=== PATIENT | male | born 1940 | race Caucasian/White ===

== ENCOUNTER 2016-12-25 12:48 | Emergency (ER) | payer SELFPAY ==
[~2016-12-25] VITALS: Wt 83.4 kg
--- NOTE | 2016-12-25 13:07 | RADRPT ---
PROCEDURE: Noncontrast CT Head. CLINICAL INDICATION: Code stroke. Acute neurologic deficit. TECHNIQUE: Noncontrast CT of the head was obtained. The administered radiation dose was CTDI vol = 45.01 mGy, DLP = 630.02 mGy-cm. One or more of the following dose reduction techniques were used: Au tomated exposure control, Adjustment of the mA and/or kV according to patient size, or Use of iterat avery reconstruction technique. COMPARISON: There are no similar studies submitted for comparison. FINDINGS: There is moderate generalized cerebral volume loss. There is minimal periventricular hypoattenuation suggesting chronic microvascular ischemic changes. There are mild vascular calcifications within the intracranial carotid arteries. There is probable subtle focal loss of asencio-white differentiation within the left parietal cortex (i mage 18 series 2) suggesting acute / recent infarction. There is a partially empty sella turcica. There is no acute intracranial hemorrhage or extra-axial fluid collection. There is no mass effect. No midline shift is identified. The orbits are within normal limits. There is mild bilateral ethmoid sinus mucosal thickening. There is mild to moderate left maxillary sinus mucosal thickening. No destructive osseous lesion is identified. There is a right parietal scalp subcutaneous density wh ich is indeterminate (image 7 series 601). IMPRESSION: 1. Subtle probable focal loss of asencio-white differentiation within the left parietal cortex suggesti ng acute / recent infarction. Consider CTA of the head/neck or noncontrast MRI of the brain as clin ically warranted. 2. No acute intracranial hemorrhage or extra-axial fluid collection. 3. Moderate generalized cerebral volume loss. 4. Minimal chronic microvascular ischemic changes. 5. Right parietal scalp subcutaneous density which is indeterminate. Correlate with physical exami nation. Further findings as detailed above. These findings were discussed with Dr. Kirk Kaur at 01:05 p.m. on December 25, 2016. RPTAT: HVF .Jourdan Frey MD, Date Time Electronically viewed and signed by .Jourdan Frey MD, MD on 12/25/2016 13:07 .F/
[2016-12-25 13:08] LABS: BASOPHILS % 0.5 % (0.0-2.0); EOSINOPHILS # 0.2 10^3/ul (0.0-0.5); EOSINOPHILS % 2.5 % (0.0-7.0); HEMATOCRIT 37.1 % (42.0-52.0); HEMOGLOBIN 12.2 g/dl (14.0-18.0); LYMPHOCYTES # 1.2 10^3/ul (0.8-2.9); LYMPHOCYTES % 14.6 % (15.0-51.0); MEAN CORPUSCULAR HEMOGLOBIN 27.9 pg (29.0-33.0); MEAN CORPUSCULAR HGB CONC 32.9 g/dl (32.0-37.0); MEAN CORPUSCULAR VOLUME 84.9 fl (82.0-101.0); MEAN PLATELET VOLUME 10.4 fl (7.4-10.4); MONOCYTE # 0.6 10^3/ul (0.3-0.9); MONOCYTES % 6.8 % (0.0-11.0); NEUTROPHIL # 6.3 10^3/ul (1.6-7.5); NEUTROPHILS % 75.2 % (39.0-77.0); PLATELET COUNT 250 10^3/UL (140-415); RED BLOOD COUNT 4.37 10^6/ul (4.70-6.10); RED CELL DISTRIBUTION WIDTH 14.7 % (11.5-14.5); WHITE BLOOD COUNT 8.3 10^3/ul (4.8-10.8)
[2016-12-25 13:09] LABS: ADD SCAN DIFF NO
--- NOTE | 2016-12-25 13:16 | ERA ---
ER Documentation Chief Complaint Date/Time DATE: 12/25/16 TIME: 13:10 Chief Complaint HPI 76-year-old male unknown past medical history unknown medications who presents via EMS for possible stroke. EMS reports that the patient was found by his with unknown onset of symptoms, unknown duration of symptoms. She noted that the patient was confused and while he normally speaks Icelandic he was speaking gibberish. EMS reported a possible right-sided facial droop and right upper extremity weakness. They state of the right upper extremity weakness with flaccid and now improving. Remainder of HPI is dramatically limited. Despite the use of a Icelandic web developer on the phone the patient was uninterpretable. ROS Critical patient, difficulty with verbalization. Allergies Allergies: Coded Allergies: No Known Allergy (Unverified , 12/25/16) Physical Exam Vitals Vital Signs Date Time Temp Pulse Resp B/P Pulse Ox O2 Delivery O2 Flow Rate FiO2 12/25/16 14:00 73 16 157/76 97 12/25/16 14:00 73 16 157/76 97 Nasal Cannula 2.0 12/25/16 13:47 82 20 167/82 98 12/25/16 13:47 82 20 167/82 98 Nasal Cannula 2.0 12/25/16 12:50 97.6 90 16 167/82 98 Physical Exam General: Well developed, well nourished, no acute distress, appears to be speaking but incomprehensible [place]ic Head: Normocephalic, atraumatic. Eyes: Pupils equally reactive, EOM intact ENT: Moist mucous membranes Neck: Supple, no lymphadenopathy Respiratory: Lungs clear bilaterally, no distress Cardiovascular: RRR, no murmurs, rubs, or gallops Abdominal: Soft, non-tender, non-distended, no peritoneal signs : Deferred MSK: No edema, no unilateral swelling, difficulty following exam but appears to be moving all 4 extremities with possible weakness to the right lower extremity though patient is poorly cooperative likely secondary to poor comprehension and language barrier Neurologic: Patient appears to be alert, he is able to follow very simple commands and seems to be moving all 4 extremities though he is having some difficulty moving the right lower extremity. There is a potential for facial droop though unknown baseline of this patient. There is very limited cooperation given language barrier, the Icelandic web developer states that the patient is speaking gibberish. Skin: No rash Psych: Normal mood Result Diagram: 12/25/16 1255 12/25/16 1255 Results 24 hrs Laboratory Tests Test 12/25/16 12:55 White Blood Count 8.310^3/ul Red Blood Count 4.3710^6/ul Hemoglobin 12.2g/dl Hematocrit 37.1% Mean Corpuscular Volume 84.9fl Mean Corpuscular Hemoglobin 27.9pg Mean Corpuscular Hemoglobin Concent 32.9g/dl Red Cell Distribution Width 14.7% Platelet Count 94338^3/UL Mean Platelet Volume 10.4fl Neutrophils % 75.2% Lymphocytes % 14.6% Monocytes % 6.8% Eosinophils % 2.5% Basophils % 0.5% Nucleated Red Blood Cells % 0.0/100WBC Neutrophils # 6.310^3/ul Lymphocytes # 1.210^3/ul Monocytes # 0.610^3/ul Eosinophils # 0.210^3/ul Basophils # 0.010^3/ul Nucleated Red Blood Cells # 0.010^3/ul Prothrombin Time 13.1Sec Prothrombin Time Ratio 1.0 INR International Normalized Ratio 0.99 Activated Partial Thromboplast Time 37.5Sec Sodium Level 141mmol/L Potassium Level 4.2mmol/L Chloride Level 100mmol/L Carbon Dioxide Level 23mmol/L Anion Gap 22 Blood Urea Nitrogen 19mg/dl Creatinine 0.69mg/dl Glucose Level 107mg/dl Hemoglobin A1c 6.0% Calcium Level 9.7mg/dl Total Bilirubin 0.3mg/dl Direct Bilirubin 0.00mg/dl Indirect Bilirubin 0.3mg/dl Aspartate Amino Transf (AST/SGOT) 20IU/L Alanine Aminotransferase (ALT/SGPT) 29IU/L Alkaline Phosphatase 72IU/L Troponin I < 0.012ng/ml Total Protein 7.6g/dl Albumin 4.5g/dl Globulin 3.10g/dl Albumin/Globulin Ratio 1.45 Ethyl Alcohol Level mg/dl Current Medications Medications (Trade) Dose Ordered Sig/Eamon Route PRN Reason Start Time Stop Time Status Last Admin Dose Admin Alteplase, Recombinant (Activase) 7.5 mg BOLUS OVER 1 MIN ONCE IV* 12/25/16 14:00 12/25/16 14:01 DC Alteplase, Recombinant 67.6 mg 67.6 mg ISCHEMIC STROKE ONCE IV* 12/25/16 14:00 12/25/16 14:01 DC Sodium Chloride (NS) 50 ml @ 0 mls/hr FLUSH AFTER TPA ONCE IV 12/25/16 14:00 12/25/16 14:01 DC Procedures/MDM EKG, MONITORS, & DIAGNOSTIC IMAGING: EKG: I reviewed and interpreted a 12-lead EKG. Rhythm: Normal sinus rhythm Ectopy: None Arrhythmia: None Intervals: No abnormalities ST segments: No elevations or depressions T waves: No contiguous inversions Interpretation: No acute cardiac ischemia Chest x-ray: I reviewed and interpreted a 1 view of the chest Mediastinum: No enlargement Cardiac silhouette: No cardiomegaly Airspace: Clear lung sharma bilaterally without evidence of pneumothorax Bones: No evidence of fracture Interpretation: No acute cardiopulmonary process CT Brain: Possible asencio-white matter abnormality in the left parietal lobe per radiology wet read, no hemorrhage. CTA Head and Neck: possible left M4 branch occlusion on CTA per radiology wet read LAB INTERPRETATION: No coagulopathy MEDICAL DECISION MAKING: The patient presents to the emergency room with slurred speech, possible right- sided facial droop and right upper extremity motor weakness. On exam however the facial droop is minimal in the right upper extremity is moving without difficulty. Possible weakness of the right lower extremity. CT imaging showing evidence of possible left parietal, occipital asencio to white matter abnormality that could represent subacute stroke. Initially we were unable to obtain a time of onset however the patient is slightly improved and during conversation with the stroke neurologist using an web developer the patient is able to verbalize and articulate at time of onset 3 hours prior to arrival. He denies any anticoagulants. A risk, benefit, alternatives conversation between Dr. Coronado and the patient was completed. Dr. Coronado is recommending TPA given this new information. The patient agrees and provides verbal informed consent. Patient has capacity. ER COURSE: Stroke assessment and timing: Onset of symptoms: Unknown however further conversation reveals 3 hours prior to arrival approximately 9:48 AM based on patient's verbal report Arrival to ED: 1248 Stroke code activation: [address] scan: [address]: 1302 Initial neurology evaluation: 1315 Conversation(s) with neurology: 1310, 1344 (decision for tPA) NIHSS: 6 TPA decision-making: Given the new information per conversation with Dr. Coronado, the patient is a candidate for TPA with time of onset less than 4.5 hours. The benefit, may outweigh the risk at this point. Dr. Coronado recommends TPA. Patient is agreeable. Informed consent provided. TPA bolus: 1347 TPA drip: 1348 Reassessment after TPA initiation: No significant interval change noted clinically Stroke neurologist on-call: Dr. Coronado Critical Care Note: Total time: 47 minutes Indication/Organ System Threat: Acute neurologic deficit and stroke code activation that requires emergent evaluation and assessment to prevent neurologic compromising collapse. I spent the above amount of critical care time with the patient, not including billable procedures. This included chart review, consultations, repeat bedside evaluations, and titration of appropriate medications to prevent cardiopulmonary or respiratory collapse. Based on the patient receiving TPA the patient may benefit from transfer to comprehensive stroke center. [facility] and [facility]. I was able to speak to Dr. Merchant at [facility] who is accepted the patient. Again he reiterates that the patient is not an interventional candidate given distal branch occlusion but after care and throughput care and a comprehensive stroke center would benefit this patient. The patient has been accepted, the benefits outweigh the risks. [facility] will arrange transport. Family not available at the time of patient's arrival DISPOSITION PLAN: Transfer to [facility] for a comprehensive stroke center CONSULTATION: Accepting care team and consultations: I discussed the current laboratory data, diagnostic imaging and emergency care provided. Admitting team: Dr. Merchant is the accepting provider Admitting team indication: Higher level of care transfer Departure Diagnosis: Primary Impression: Acute ischemic left MCA stroke Condition: Stable MEGHANA NARANJO MD Dec 25, 2016 13:16
[2016-12-25 13:23] LABS: INR 0.99; PROTIME 13.1 Sec (12.2-14.2)
[2016-12-25 13:24] LABS: PARTIAL THROMBOPLASTIN TIME 37.5 Sec (25.0-35.0)
[2016-12-25 13:26] LABS: ALANINE AMINOTRANSFERASE 29 IU/L (13-69); ALBUMIN 4.5 g/dl (3.3-4.9); ALBUMIN/GLOBULIN RATIO 1.45; ALKALINE PHOSPHATASE 72 IU/L (42-121); ANION GAP 22 (8-16); ASPARTATE AMINO TRANSFERASE 20 IU/L (15-46); BILIRUBIN,INDIRECT 0.3 mg/dl (0-1.1); BILIRUBIN,TOTAL 0.3 mg/dl (0.2-1.3); BLOOD UREA NITROGEN 19 mg/dl (7-20); CALCIUM 9.7 mg/dl (8.4-10.2); CARBON DIOXIDE 23 mmol/L (21-31); CHLORIDE 100 mmol/L (97-110); CREATININE 0.69 mg/dl (0.61-1.24); GLUCOSE 107 mg/dl (70-220); POTASSIUM 4.2 mmol/L (3.5-5.1); SODIUM 141 mmol/L (135-144); TOTAL PROTEIN 7.6 g/dl (6.1-8.1)
[2016-12-25 13:39] LABS: TROPONIN-I < 0.012 ng/ml (0.00-0.12)
--- NOTE | 2016-12-25 13:43 | RADRPT ---
PROCEDURE: CTA Head and neck. CLINICAL INDICATION: Code stroke. Acute neurologic deficit. TECHNIQUE: CTA of the head and neck was obtained . Sagittal and coronal reformations and MIPs were provided. Images were obtained prior following the intravenous contrast administration of 100 cc of Omnipaque 350 contrast. The administered radiation dose was CTDI vol = 70.12, 15.28 mGy, DLP = 35.0 6, 596.25 mGy-cm. Coronal and sagittal as well as maximal intensity projection reformations were ob tained. One or more of the following dose reduction techniques were used: Automated exposure control , Adjustment of the mA and/or kV according to patient size, or Use of iterative reconstruction techn ique. COMPARISON: There are no similar studies submitted for comparison.Noncontrast CT of the head from e same day. FINDINGS: CTA neck: Aorta: Normal in caliber. There is moderate atheroma and vascular calcifications within the aortic a rch. Right common carotid artery: There is mild long segment atheroma. Patent without evidence of stenos is. Right internal carotid artery: There is moderate atheroma and vascular calcifications causing 20% st enosis by NASCET criteria. Right external carotid artery: Patent without evidence of stenosis. Left common carotid artery: There is mild long segment atheroma. Patent without evidence of stenosi s. Left internal carotid artery: There is mild atheroma and vascular calcifications causing 10% stenosi s by NASCET criteria. Patent without evidence of stenosis. Left external carotid artery: Patent without evidence of stenosis. V1/V2 vertebral arteries: Patent bilaterally without evidence of stenosis. Vertebral artery dominance: Right. CTA head: Carotid arteries: There are moderate vascular calcifications and atheroma within the bilateral efren nous and supraclinoid carotid arteries. This causes severe right and moderate to severe left cavern ous carotid artery stenosis. There is mild bilateral supraclinoid carotid artery stenosis. Anterior cerebral arteries: Patent bilaterally without evidence of stenosis. Middle cerebral arteries: There is occlusion of a distal left M4 middle cerebral artery branch (imag e 96 series 2). The right middle cerebral artery is patent without significant stenosis. Posterior cerebral arteries: Patent bilaterally without evidence of stenosis. Anterior communicating artery: Present. Posterior communicating arteries: Present bilaterally and greater on the right. Basilar artery: Patent without evidence of stenosis. V3/V4 Vertebral arteries: Patent bilaterally without evidence of stenosis. Aneurysm: No aneurysm is identified. Venous sinuses: Patent. CT head with contrast: No significant change from recent noncontrast CT of the head. CT neck: There is no cervical adenopathy. There are subcentimeter bilateral thyroid nodules. IMPRESSION: CTA Head 1. Occlusion of a distal left parietal M4 middle cerebral artery branch. 2. 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 3. Mild bilateral supraclinoid carotid artery stenosis. 4. No intracranial aneurysm. CTA Neck 1. 20% right and 10% left internal carotid artery stenosis by NASCET criteria. 2. Subcentimeter bilateral thyroid nodules. Further findings as detailed above. These findings were discussed with Dr. Kirk Kaur at 01:37 p.m. on December 25, 2016. RPTAT: HVF .Jourdan Frey MD, Date Time Electronically viewed and signed by .Jourdan Frey MD, on 12/25/2016 13:43 .F/
--- NOTE | 2016-12-25 13:51 | STROKE ---
Date/Time of Note Date/Time of Note DATE: 12/25/16 TIME: 13:39 Patient Information General Patient location: emergency Arrival Date Age 76 Gender male Weight 0 g Vital Signs Vital Signs Vital Signs Date Time Temp Pulse Resp B/P Pulse Ox O2 Delivery O2 Flow Rate FiO2 12/25/16 12:50 97.6 90 16 167/82 98 Labs Hematology Labs Hematology Test 12/25/16 12:55 White Blood Count 8.310^3/ul (4.8-10.8) Red Blood Count 4.3710^6/ul (4.70-6.10) Hemoglobin 12.2g/dl (14.0-18.0) Hematocrit 37.1% (42.0-52.0) Mean Corpuscular Volume 84.9fl (82.0-101.0) Mean Corpuscular Hemoglobin 27.9pg (29.0-33.0) Mean Corpuscular Hemoglobin Concent 32.9g/dl (32.0-37.0) Red Cell Distribution Width 14.7% (11.5-14.5) Platelet Count 32810^3/UL (140-415) Mean Platelet Volume 10.4fl (7.4-10.4) Neutrophils % 75.2% (39.0-77.0) Lymphocytes % 14.6% (15.0-51.0) Monocytes % 6.8% (0.0-11.0) Eosinophils % 2.5% (0.0-7.0) Basophils % 0.5% (0.0-2.0) Nucleated Red Blood Cells % 0.0/100WBC (0.0-0.0) Neutrophils # 6.310^3/ul (1.6-7.5) Lymphocytes # 1.210^3/ul (0.8-2.9) Monocytes # 0.610^3/ul (0.3-0.9) Eosinophils # 0.210^3/ul (0.0-0.5) Basophils # 0.010^3/ul (0.0-0.1) Nucleated Red Blood Cells # 0.010^3/ul (0.0-0.0) Chemistry Labs Chemistry Test 12/25/16 12:55 Sodium Level 141mmol/L (135-144) Potassium Level 4.2mmol/L (3.5-5.1) Chloride Level 100mmol/L (97-110) Carbon Dioxide Level 23mmol/L (21-31) Anion Gap 22 (8-16) Blood Urea Nitrogen 19mg/dl (7-20) Creatinine 0.69mg/dl (0.61-1.24) Glucose Level 107mg/dl (70-220) Hemoglobin A1c 6.0% (0-5.9) Calcium Level 9.7mg/dl (8.4-10.2) Total Bilirubin 0.3mg/dl (0.2-1.3) Direct Bilirubin 0.00mg/dl (0.00-0.20) Indirect Bilirubin 0.3mg/dl (0-1.1) Aspartate Amino Transf (AST/SGOT) 20IU/L (15-46) Alanine Aminotransferase (ALT/SGPT) 29IU/L (13-69) Alkaline Phosphatase 72IU/L (42-121) Total Protein 7.6g/dl (6.1-8.1) Albumin 4.5g/dl (3.3-4.9) Globulin 3.10g/dl (1.3-3.2) Albumin/Globulin Ratio 1.45 Coagulation Labs: Coagulation Test 12/25/16 12:55 Prothrombin Time 13.1Sec (12.2-14.2) Prothrombin Time Ratio 1.0 INR International Normalized Ratio 0.99 Activated Partial Thromboplast Time 37.5Sec (25.0-35.0) History & Physical Patient History Notes Pt Hx Reviewed History of Present Illness 76yo M found by his speaking tangberish. Time of onset was initially unknown, but with help of English slip cover operator, able to determine time of onset at 10:30am. Review of Systems All Other Systems: Reviewed and Negative NIH Stroke Scale NIH Stroke Scale 1A - Level of Conciousness: 0 - Alert keenly [id number] LOC Questions: 2 - Answers no [id number] - LOC Commands: 0 - Performs both tasks2 - Best Gaze: 0 - Normal3 - Visual: 0 - No visual loss4 - Facial Palsy: 0 - No visual loss 5A - Motor Arm - Left: 0 - No [id number] - Motor Arm - Right: 0 - No [id number] - Motor Leg - Left: 0 - No [id number] - Motor Leg - Right: 4 - No movement7 - Limb Ataxia: 0 - Absent8 - Sensory: 1 - Mild to moderate loss9 - Best Language: 2 - Severe aphasiaDysarthria: 0 - [id number] - Extinction and inattentio: 0 - No abnormalityTotal Score: 9 Date/Time Recorded DATE: 12/25/16 TIME: 13:39 Submitted By Jagdeep Coronado t-PA Imaging Review Imaging Reviewed: Yes Date/Time Imaging Reviewed DATE: 12/25/16 TIME: 13:39 Imaging Findings No acute changes, per radiologist patient shows blurring of ma-white junction in parietal lobe. CTA head and neck images also reviewed- no M1 occlusion, per verbal radiologist report patient has M4 occlusion on the left. t-PA Administration Recommendation: Yes Weight 0 g t-PA Recommendation Date/Time 13:40 Recommedation submitted by Jagdeep Coronado Recommendations Impression Diagnosis left middle cerebral artery stroke Recommendation 76yo M presents with acute onset speech difficulty. Neurological exam is notable for right face and arm numbness, right leg weakness, and patient speaking gibberish. With the assistance of English slip cover operator, patient is able to understand speech and able to communicate using fingers and head nodding, with occasional Angolan words, but English slip cover operator reports that his words are not English words. I believe these are neologisms. I believe patient is having an acute ischemic stroke of the left middle cerebral artery. I reviewed the risks and benefits of IV TPA with the assistance of the English slip cover operator and patient is agreeable to my recommendation for IV TPA. CTA head and neck is completed and patient is not a neurointerventional candidate. I recommend post- tPA orders be followed. I recommend further workup include MRI Brain without gadolinium and transthoracic echocardiogram. TPA recommendation was delayed to to initial unclear time of onset. Post t-PA Order recommendation: Document q15 min vitals Document q15 min neuro checks Document q15 min bleeding checks Refer to t-PA Order Sets Diagnostic Labs: Lipid Proile Hgb A1C CMP CBC w/Diff Coags Therapy: Physical Therapy Speech Therapy Occupational Therapy Misc. Recommendations: Bedside Swallow Evaluation Pnumatic Compression Devices Avoid Gonzalez Catheter Stroke Education Smoking Education JAGDEEP CORONADO Dec 25, 2016 13:50
[2016-12-25 14:00] VITALS: BP 157/76; PULSE 73; RESP 16
[2016-12-25] MEDS ORDERED: ALTEPLASE 100 MG INJ IV* ONE (14:00)
[2016-12-25] MEDS ORDERED: ALTEPLASE (tPA) 1 MG/ML BOLUS SYG IV* ONE (14:00)
[2016-12-25] MEDS ORDERED: SOD CHLORIDE 0.9% 50 ML IV ONE (14:00)
[2016-12-25] MEDS ORDERED: ASPI81TA3 PO (14:27)
[2016-12-25] MEDS ORDERED: LEVO50TA74 ORAL (14:27)
[2016-12-25] MEDS ORDERED: GABA300C16 ORAL (14:27)
[2016-12-25] MEDS ORDERED: LOVA40TA ORAL (14:27)
[2016-12-25] MEDS ORDERED: TAMS0.4C2 PO (14:27)
[2016-12-25] MEDS ORDERED: PANT40TA4 ORAL (14:27)
--- NOTE | 2016-12-25 15:08 | RADRPT ---
PROCEDURE: XR 1 view Chest. CLINICAL INDICATION: Stroke. TECHNIQUE: Portable Single frontal view of the chest was obtained. COMPARISON: There are no similar studies submitted for comparison. FINDINGS: There is mild to moderate cardiomegaly. There are mild aortic calcifications. There are chronic int erstitial markings. There is no focal consolidation. There is no pleural effusion. No pneumothorax is identified. The osseous structures are intact. IMPRESSION: No evidence for acute cardiopulmonary disease. Mild to moderate cardiomegaly with aortic calcifications. Chronic interstitial markings. Further findings as detailed above. RPTAT: HVF .Jourdan Frey MD, MD Date Time Electronically viewed and signed by .Jourdan Frey MD, on 12/25/2016 15:07 .F/
== END 2016-12-25 14:50 | disposition short-term general hospital (02) ==
LOC: E/R 12:48
DX: I63.412 Cerebral infarction due to embolism of left middle cerebral artery (principal); R40.2232 Coma scale, best verbal response, inappropriate words, at arrival to emergency department; R40.2142 Coma scale, eyes open, spontaneous, at arrival to emergency department; R40.2362 Coma scale, best motor response, obeys commands, at arrival to emergency department
CPT/HCPCS: 37195; 70450; 70496; 70498; 71010; 80053; 80306; 83036; 84484; 85025; 85610; 85730; 86850; 86900; 86901; J2997; 36415; 93005

== ENCOUNTER 2017-05-18 11:54 | Inpatient (IN) | payer OTHER ==
[2017-05-18] VITALS (7 sets, daily range): BP systolic 103–130; BP diastolic 66–75; PULSE 123–169; RESP 18–22; TEMP 97.8; Ht 172.7 cm; Wt 77.3 kg
[~2017-05-18] VITALS: Ht 172.7 cm; Wt 77.3 kg
[~2017-05-18 11:54] MED LIST: ASPI81TA3 PO; GABA300C16 ORAL; LEVO50TA74 ORAL; LOVA40TA ORAL; PANT40TA4 ORAL; TAMS0.4C2 PO
[2017-05-18] MEDS ORDERED: SOD CHLORIDE 0.9% 1,000 ML IV STA (12:04)
[2017-05-18] MEDS ORDERED: METHYLPREDNISOLONE 125 MG INJ IV STA (12:20)
[2017-05-18] MEDS ORDERED: ALBUTEROL 0.5% (NEB) 2.5 MG/0.5 ML AMP INH STA (12:20)
--- NOTE | 2017-05-18 12:24 | ERD ---
ER Documentation Chief Complaint Chief Complaint BIBA R89, GENERALIZE WEAKNESS & SOB X 3DAYS HPI 76-year-old man brought in by EMS from home for shortness of breath, he has a longtime history of COPD and smokes heavily. Patient admits to having a history of atrial fibrillation and multiple previous breathing treatments. He denies fevers or chills, no chest pain or shortness of breath, no vomiting or diarrhea, no headache or blurry vision. Patient was placed on high flow oxygen and transported here. Patient specifically denies use of Lasix. ROS All systems reviewed and are negative except as per history of present illness. Medications Home Meds Reported Medications Aspirin* (Aspirin* Chew) 81 Mg Tab.chew, 81 MG PO DAILY, TAB.CHEW 12/25/16 Tamsulosin Hcl* (Tamsulosin Hcl*) 0.4 Mg Cap.er.24h, 0.4 MG PO HS, CAP 12/25/16 Pantoprazole* (Pantoprazole*) 40 Mg Tablet.dr, 40 MG ORAL DAILY, #30 12/25/16 Gabapentin* (Gabapentin*) 300 Mg Capsule, 300 MG ORAL TID, #90 12/25/16 Lovastatin (Lovastatin) 40 Mg Tablet, 40 MG ORAL DAILY, #60 12/25/16 Levothyroxine Sodium* (Levothyroxine Sodium*) 50 Mcg Tablet, 50 MCG ORAL AM, #30 12/25/16 Allergies Allergies: Coded Allergies: No Known Allergy (Unverified , 12/25/16) PMhx/Soc Hypothyroidism, COPD, CAD, dyslipidemia, hypertension, possible CHF, gastritis, history of stroke, atrial fibrillation Hx Cardiac Disorders: Yes (htn) FmHx Family History: No diabetes Physical Exam Vitals Vital Signs Date Time Temp Pulse Resp B/P Pulse Ox O2 Delivery O2 Flow Rate FiO2 05/18/17 12:45 128 18 96 Nasal Cannula 2.0 05/18/17 12:04 98.3 144 22 111/86 95 05/18/17 12:00 Nasal Cannula 3 Physical Exam GENERAL: Well-developed, appears dehydrated, afebrile, dyspneic HEENT: Dry mucous membranes, pink conjunctiva, no cervical spine tenderness or step-off deformities, no goiter, no jaundice or icterus, extraocular movements intact without pain. No submandibular induration, and no pharyngeal erythema NEURO: Alert and oriented 3, cranial nerves II through XII intact bilaterally, pupils equal round reactive to light, no focal deficits or facial asymmetry, sensation intact distally Strength 5/5 in upper and lower extremities bilaterally CARDIAC: Tachycardic and irregular, no murmurs rubs or gallops LUNGS: Poor breath sounds bilaterally ABDOMEN: Soft nontender, no guarding, no rigidity, no rebound, no psoas sign no obturator sign. Normoactive bowel sounds SKIN: Warm and dry to touch, no abrasions, contusions, or hematomas, no lacerations, no ecchymosis, no target lesions, and without ulcers EXTREMITIES: No clubbing cyanosis, 3+ pitting edema in the lower extremities bilaterally, calves are bilaterally symmetrical, no Homans sign, no popliteal cord sign. Distal pulses equal and bilateral PSYCH: Normal affect without agitation or irritability Result Diagram: 05/18/17 1200 05/18/17 1200 Results 24 hrs Laboratory Tests Test 05/18/17 12:00 White Blood Count 10.310^3/ul Red Blood Count 4.3010^6/ul Hemoglobin 11.8g/dl Hematocrit 37.2% Mean Corpuscular Volume 86.5fl Mean Corpuscular Hemoglobin 27.4pg Mean Corpuscular Hemoglobin Concent 31.7g/dl Red Cell Distribution Width 16.4% Platelet Count 44924^3/UL Mean Platelet Volume 10.4fl Neutrophils % 85.8% Lymphocytes % 6.1% Monocytes % 6.4% Eosinophils % 0.8% Basophils % 0.3% Nucleated Red Blood Cells % 0.0/100WBC Neutrophils # 8.810^3/ul Lymphocytes # 0.610^3/ul Monocytes # 0.710^3/ul Eosinophils # 0.110^3/ul Basophils # 0.010^3/ul Nucleated Red Blood Cells # 0.010^3/ul Sodium Level 140mmol/L Potassium Level 4.0mmol/L Chloride Level 101mmol/L Carbon Dioxide Level 30mmol/L Anion Gap 13 Blood Urea Nitrogen 15mg/dl Creatinine 0.62mg/dl Glucose Level 123mg/dl Calcium Level 9.1mg/dl Total Bilirubin 0.3mg/dl Direct Bilirubin 0.00mg/dl Indirect Bilirubin 0.3mg/dl Aspartate Amino Transf (AST/SGOT) 22IU/L Alanine Aminotransferase (ALT/SGPT) 38IU/L Alkaline Phosphatase 157IU/L Troponin I Pending Total Protein 6.8g/dl Albumin 3.1g/dl Globulin 3.70g/dl Albumin/Globulin Ratio 0.83 Lipase 417U/L Current Medications Medications (Trade) Dose Ordered Sig/Eamon Route PRN Reason Start Time Stop Time Status Last Admin Dose Admin Magnesium Sulfate (Magnesium Sulfate 2 Gm/50 ml) 50 ml @ 25 mls/hr ONCE ONCE IVPB 05/18/17 12:30 05/18/17 14:29 05/18/17 12:15 Aspirin 324 mg 324 mg ONCE ONCE PO 05/18/17 12:30 05/18/17 12:31 DC 05/18/17 12:15 Sodium Chloride (NS) 1,000 ml @ 1,000 mls/hr Q1H STAT IV 05/18/17 12:04 05/18/17 13:03 05/18/17 12:15 Albuterol (Proventil 0.5% (Neb)) 10 mg ONCE STAT INH 05/18/17 12:20 05/18/17 12:22 DC 05/18/17 12:44 Methylprednisolone Sodium Succinate (Solu-Medrol) 125 mg ONCE STAT IV 05/18/17 12:20 05/18/17 12:22 DC Furosemide (Lasix) 80 mg ONCE ONCE IV 05/18/17 13:00 05/18/17 13:01 Furosemide (Lasix) 40 mg STK-MED ONCE .ROUTE 05/18/17 12:53 05/18/17 12:54 DC Procedures/MDM IV line was established patient was placed on accounts receivable executive rhythm strip revealed a tachycardia at about 150 bpm. Patient was afebrile. Patient looked initially dehydrated and was tachycardic so I administered 1 L normal saline intravenously for dehydration, magnesium 2 g IV, he also received aspirin 324 mg p.o. for cardioprotective measures, albuterol 10 mg via nebulizer , and methylprednisolone 125 mg IV 1. EKG performed, read by me revealed an atrial fibrillation with rapid ventricular rate at 147 bpm, normal axis, narrow QRS complex, no concerning ST elevations or depressions noted. One view chest x-ray performed, read by me at cardiomegaly and bilateral pulmonary edema consistent with decompensated heart failure, no acute infiltrates, no pneumothorax. CBC and electrolytes are normal, liver function tests were normal, troponin was negative I administered furosemide 80 mg IV 1. Critical Care: Time: 54 minutes, this was time separate from other billable procedures. Treatments/Evaluations: Close monitoring and treatment of unstable vital signs, cardiorespiratory, and neurologic status, while maintaining tight balance of fluid, respiratory, and cardiac interventions. Patient is tachypneic and dyspneic he will be admitted to telemetry setting for continued medical management and possible cardiology and pulmonology consultation. I suspect he has both acutely decompensated heart failure and an exacerbation of chronic obstructive pulmonary disease with underlying atrial fibrillation with RVR as a complicating issue. Patient is without fever and has had no cough and so antibiotics will be be deferred. Departure Diagnosis: Primary Impression: Acute weakness Additional Impressions: CHF (congestive heart failure) Congestive heart failure type: systolic Congestive heart failure chronicity: acute Qualified Code: I50.21 - Acute systolic congestive heart failure COPD (chronic obstructive pulmonary disease) COPD type: COPD with acute exacerbation Qualified Code: J44.1 - Chronic obstructive pulmonary disease with acute exacerbation Atrial fibrillation with RVR Condition: MARY Mott MD May 18, 2017 12:24
[2017-05-18 12:27] LABS: BASOPHILS % 0.3 % (0.0-2.0); EOSINOPHILS # 0.1 10^3/ul (0.0-0.5); EOSINOPHILS % 0.8 % (0.0-7.0); HEMATOCRIT 37.2 % (42.0-52.0); HEMOGLOBIN 11.8 g/dl (14.0-18.0); LYMPHOCYTES # 0.6 10^3/ul (0.8-2.9); LYMPHOCYTES % 6.1 % (15.0-51.0); MEAN CORPUSCULAR HEMOGLOBIN 27.4 pg (29.0-33.0); MEAN CORPUSCULAR HGB CONC 31.7 g/dl (32.0-37.0); MEAN CORPUSCULAR VOLUME 86.5 fl (82.0-101.0); MEAN PLATELET VOLUME 10.4 fl (7.4-10.4); MONOCYTE # 0.7 10^3/ul (0.3-0.9); MONOCYTES % 6.4 % (0.0-11.0); NEUTROPHIL # 8.8 10^3/ul (1.6-7.5); NEUTROPHILS % 85.8 % (39.0-77.0); PLATELET COUNT 324 10^3/UL (140-415); RED CELL DISTRIBUTION WIDTH 16.4 % (11.5-14.5); WHITE BLOOD COUNT 10.3 10^3/ul (4.8-10.8)
[2017-05-18] MEDS ORDERED: MAGNESIUM SULFATE 2 GM/50 ML 50 ML IVPB ONE (12:30)
[2017-05-18] MEDS ORDERED: ASPIRIN 81 MG TAB PO ONE (12:30)
[2017-05-18 12:53] LABS: ALANINE AMINOTRANSFERASE 38 IU/L (13-69); ALBUMIN 3.1 g/dl (3.3-4.9); ALBUMIN/GLOBULIN RATIO 0.83; ALKALINE PHOSPHATASE 157 IU/L (42-121); ANION GAP 13 (8-16); ASPARTATE AMINO TRANSFERASE 22 IU/L (15-46); BILIRUBIN,INDIRECT 0.3 mg/dl (0-1.1); BILIRUBIN,TOTAL 0.3 mg/dl (0.2-1.3); BLOOD UREA NITROGEN 15 mg/dl (7-20); CALCIUM 9.1 mg/dl (8.4-10.2); CARBON DIOXIDE 30 mmol/L (21-31); CHLORIDE 101 mmol/L (97-110); CREATININE 0.62 mg/dl (0.61-1.24); GLUCOSE 123 mg/dl (70-220); SODIUM 140 mmol/L (135-144); TOTAL PROTEIN 6.8 g/dl (6.1-8.1)
[2017-05-18] MEDS ORDERED: FUROSEMIDE 40 MG INJ ONE (12:53)
[2017-05-18] MEDS ORDERED: FUROSEMIDE 40 MG INJ IV ONE (13:00)
[2017-05-18 13:04] LABS: TROPONIN-I < 0.012 ng/ml (0.00-0.12)
[2017-05-18] MEDS ORDERED: FINA5TAB4 PO (13:05)
--- NOTE | 2017-05-18 13:08 | RADRPT ---
PROCEDURE: XR Chest. CLINICAL INDICATION: chest pain TECHNIQUE: Single AP view of the chest were obtained COMPARISON: 12/25/2016 FINDINGS: The heart is moderately enlarged and this has increased. The pulmonary vasculature are increased in size. The aorta demonstrates atherosclerotic calcifications. There is worsening bilateral interstitial opacity with new development of peripheral right lung cons olidation and left lower lobe consolidation as well. There is a likely left effusion. Degenerative changes are seen within the thoracic spine. There is no acute osseous abnormality. IMPRESSION: Worsening cardiomegaly and vascular congestion with bilateral pulmonary edema. Bilateral opacities are seen which could represent areas of infection. A small left effusion is like ly present. RPTAT: AA .Junie Baker MD, MD Date Time Electronically viewed and signed by .Junie Baker MD, on 05/18/2017 13:08 .Avis/
[2017-05-18] MEDS ORDERED: LORAZEPAM 0.5 MG TAB PO ONE (13:30)
[2017-05-18 14:21] LABS: ADD UMIC YES; UR ASCORBIC ACID 40 mg/dL (NEGATIVE); UR BACTERIA MANY /HPF (NONE SEEN); UR BILIRUBIN (Dip) NEGATIVE (NEGATIVE); UR BLOOD (Dip) NEGATIVE (NEGATIVE); UR CLARITY CLEAR (CLEAR); UR COLOR YELLOW (YELLOW); UR GLUCOSE (Dip) NEGATIVE (NEGATIVE); UR KETONES (Dip) NEGATIVE (NEGATIVE); UR LEUKOCYTE ESTERASE (Dip) 1+ Leu/ul (NEGATIVE); UR MUCUS FEW /HPF (NONE SEEN); UR NITRITE (Dip) POSITIVE (NEGATIVE); UR RBC 1 /HPF (0-5); UR SPECIFIC GRAVITY (Dip) 1.016 (1.003-1.030); UR SQUAMOUS EPITHELIAL CELL FEW /HPF (FEW); UR TOTAL PROTEIN (Dip) NEGATIVE (NEGATIVE); UR UROBILINOGEN (Dip) 2+ mg/dL (NEGATIVE)
[2017-05-18] MEDS ORDERED: HYDROCODONE/APAP (5/325) TAB PO PRN ×2 (15:30)
[2017-05-18] MEDS ORDERED: MAGNESIUM HYDROXIDE 30ML CUP PO PRN (15:30)
[2017-05-18] MEDS ORDERED: DOCUSATE SODIUM 100 MG CAP PO PRN (15:30)
[2017-05-18] MEDS ORDERED: ONDANSETRON 4 MG INJ IV PRN (15:30)
[2017-05-18] MEDS ORDERED: ACETAMINOPHEN 650 MG SUPP PR PRN (15:30)
[2017-05-18] MEDS ORDERED: morphine 2 MG INJ IV PRN (15:30)
[2017-05-18] MEDS ORDERED: NACL 0.9% 3 ML SYG IV SCH (15:30)
[2017-05-18] MEDS ORDERED: ACETAMINOPHEN 325 MG TAB PO PRN (15:30)
[2017-05-18] MEDS ORDERED: BISACODYL 10 MG SUPP PR PRN (15:30)
[2017-05-18] MEDS ORDERED: DILTIAZEM 25 MG INJ IV ONE (16:00)
--- NOTE | 2017-05-18 16:06 | HP ---
Date/Time of Note Date/Time of Note DATE: 05/18/17 TIME: 16:01 Assessment/Plan VTE Prophylaxis VTE Prophylaxis Intervention: heparin Assessment/Plan Chief Complaint/Hosp Course Assessment and plan 1. CHF exacerbation. Patient denies any cardiac history but given patient's presentation likely with CHF. Follow-up on echocardiogram. Continue with diuretic as well as beta-stefany. Beater Lead to follow. Continue with diuretic. Monitor for improvement of respiratory status 2. Atrial fibrillation with rapid ventricular response. Monitor on telemetry. Beater Lead following. Continue on beta-stefany for now. Cardizem as needed. Anticoagulation per cdl instructor. Start on antiplatelet therapy 3. Dyspnea likely secondary to CHF exacerbation/suspect underlying COPD. Will provide with bronchodilators as needed. Continue with diuretic therapy. 4. Suspect pneumonia. Given patient's chest radiograph. Will place on antibiotics for now. 5. BPH. Continue on Flomax 6. Dyslipidemia. Follow-up on fasting lipid panel. 7. Anemia likely of chronic disease. Follow-up on iron panel. Monitor H&H. 8. Elevated lipase level. Patient denies any abdominal pain at this time. Monitor for now. Admission process time greater than 40 minutes Discussed plan of care with Dr. 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 Patient denies any chest pain. Denies any sick contacts. On further examination he had a chest x-ray that did show bilateral opacities suspect for possible pneumonia as well as cardiomegaly and vascular congestion with bilateral pulmonary edema. He also on blood work had a BNP of 7720 with slight elevation in lipase at 417. He was also noted to be anemic likely of chronic disease. He is also seen to have atrial fibrillation with rapid ventricular rate per EKG. Afebrile at present. Denies any other associated symptoms. We will evaluate him for the aformentiond issues. ROS 12 point review of systems obtained and entirely negative except that mentioned in the history of present illness PMH/Family/Social Past Medical History Medical/surgical history 1. CVA 4 months ago with rightLower extremity paralysis and generalized weakness 2. Dyslipidemia 3. Hypothyroidism 4. BPH 5. Suspect COPD Family History Significant Family History: no pertinent family hx Social History Alcohol Use: none Smoking Status: Current every day smoker (1 pack per day over 50 years) Drug Use: none Exam/Review of Systems Vital Signs Vitals Vital Signs Date Time Temp Pulse Resp B/P Pulse Ox O2 Delivery O2 Flow Rate FiO2 05/18/17 15:56 2.0 05/18/17 15:33 128 05/18/17 13:59 97.8 26 122/89 96 Nasal Cannula Exam Constitutional: alert, oriented Psych: nl mood/affect Head: normocephalic Eyes: nl conjunctiva Neck: non-tender, supple Respiratory: other (Congested with rhonchi auscultated bilateral lung sharma) Cardiovascular: other (Atrial fibrillation with rapid ventricular response) Gastrointestinal: soft Musculoskeletal: swelling (Noted on bilateral lower extremities), No nl gait and stance Neurological: nl mental status, nl speech Labs Result Diagram: 05/18/17 1200 05/18/17 1200 Medications Medications Current Medications Aspirin (Aspirin) 81 mg DAILY PO ; Start 05/19/17 at 09:00 Finasteride (Proscar) 5 mg DAILY PO ; Start 05/19/17 at 09:00 Gabapentin (Neurontin) 300 mg TID PO ; Start 05/18/17 at 21:00 Tamsulosin HCl (Flomax) 0.4 mg HS PO ; Start 05/18/17 at 21:00 Atorvastatin Calcium (Lipitor) 10 mg DAILY PO ; Start 05/19/17 at 09:00 Ondansetron HCl (Zofran Inj) 4 mg Q6H PRN IV NAUSEA AND/OR VOMITING; Start at 15:30 Acetaminophen (Tylenol Tab) 650 mg Q6H PRN PO PAIN LEVEL 1-3 OR FEVER; Start 05/18/17 at 15:30 Acetaminophen (Tylenol Supp) 650 mg Q6H PRN [place] PAIN LEVEL 1-3 OR FEVER; Start 05/18/17 at 15:30 Acetaminophen/ Hydrocodone Bitart ([place] (5/325)) 1 tab Q6H PRN PO MODERATE PAIN LEVEL 4-6; Start 05/18/17 at 15:30 Acetaminophen/ Hydrocodone Bitart ([place] (5/325)) 2 tab Q6H PRN PO SEVERE PAIN LEVEL 7-10; Start 05/18/17 at 15:30 Morphine Sulfate (morphine) 2 mg Q4H PRN IV SEVERE PAIN LEVEL 7-10; Start at 15:30 Docusate Sodium (Colace) 100 mg Q12H PRN PO CONSTIPATION; Start 05/18/17 at 15 :30 Magnesium Hydroxide (Milk Of Mag) 30 ml DAILY PRN PO CONSTIPATION; Start 05/18 at 15:30 Bisacodyl (Dulcolax Supp) 10 mg DAILY PRN [place] CONSTIPATION; Start 05/18/17 at 15:30 Pantoprazole (Protonix Iv) 40 mg DAILY@06 IV ; Start 05/19/17 at 06:00 Heparin Sodium (Porcine) (Heparin (5000 Units/0.5 ml)) 5,000 unit Q12 SC ; Start 05/18/17 at 21:00 Furosemide (Lasix) 40 mg DAILY IV ; Start 05/19/17 at 09:00 Carvedilol (Coreg) 6.25 mg BID PO ; Start 05/18/17 at 21:00 Diltiazem HCl (Cardizem Iv) 5 mg ONCE ONCE IV ; Start 05/18/17 at 16:00; Stop 05/18/17 at 16:01 PRANEETH POOL May 18, 2017 16:06
[2017-05-18 16:33] LABS: CREATINE KINASE 54 IU/L (23-200)
[2017-05-18] MEDS: METOPROLOL (XL) 50 MG TAB PO SCH (16:42)
[2017-05-18] MEDS: CEFTRIAXONE 1 GM/50 ML (PMX) 50 ML IVPB SCH (16:43)
[2017-05-18 16:47] LABS: CK-MB 8.66 ng/ml (0.0-2.4); TROPONIN-I < 0.012 ng/ml (0.00-0.12)
[2017-05-18] MEDS ORDERED: INFLUENZA VIRUS VACCINE 0.5 ML (DISPENSING) IM* ONE (20:30)
[2017-05-18] MEDS: HEPARIN 5,000 UNIT/0.5 ML VIAL SC SCH (21:00)
[2017-05-18 21:44] LABS: CREATINE KINASE 41 IU/L (23-200)
[2017-05-18] MEDS: GABAPENTIN 300 MG CAP PO SCH (21:44)
[2017-05-18] MEDS: TAMSULOSIN (SR) 0.4 MG CAP PO SCH (21:44)
[2017-05-18] MEDS: AZITHROMYCIN 500MG/NS (PMX) 250 ML IVPB SCH ×2 (21:50→22:11)
[2017-05-18 22:05] LABS: CK-MB 7.09 ng/ml (0.0-2.4); TROPONIN-I < 0.012 ng/ml (0.00-0.12)
[2017-05-18] MEDS ORDERED: ZOLPIDEM 5 MG TAB PO PRN (22:30)
[2017-05-18] MEDS: ENOXAPARIN 40 MG/0.4 ML SYG SC SCH (22:35)
[2017-05-19] VITALS (13 sets, daily range): BP systolic 97–142; BP diastolic 58–69; PULSE 90–107; RESP 17–20
[2017-05-19] MEDS: LEVALBUTEROL (NEB) 0.63 MG/3 ML AMP HHN PRN ×2 (00:17→22:06)
[2017-05-19] MEDS: PANTOPRAZOLE 40 MG INJ IV SCH (06:42)
[2017-05-19] MEDS: LEVOTHYROXINE 50 MCG TAB PO SCH (06:42)
[2017-05-19 07:10] LABS: ABNORMAL IP MESSAGE 1; HEMATOCRIT 32.2 % (42.0-52.0); HEMOGLOBIN 10.4 g/dl (14.0-18.0); LYMPHOCYTES # 0.6 10^3/ul (0.8-2.9); LYMPHOCYTES % 9.1 % (15.0-51.0); MEAN CORPUSCULAR HEMOGLOBIN 27.3 pg (29.0-33.0); MEAN CORPUSCULAR HGB CONC 32.3 g/dl (32.0-37.0); MEAN CORPUSCULAR VOLUME 84.5 fl (82.0-101.0); MEAN PLATELET VOLUME 10.7 fl (7.4-10.4); MONOCYTE # 0.3 10^3/ul (0.3-0.9); MONOCYTES % 5.4 % (0.0-11.0); NEUTROPHIL # 5.3 10^3/ul (1.6-7.5); PLATELET COUNT 297 10^3/UL (140-415); POSITIVE DIFF @See below; RED BLOOD COUNT 3.81 10^6/ul (4.70-6.10); WHITE BLOOD COUNT 6.3 10^3/ul (4.8-10.8)
[2017-05-19 07:31] LABS: IRON 11 ug/dl (35-150)
[2017-05-19 07:41] LABS: TOTAL IRON BINDING CAPACITY 236 ug/dl (241-421)
[2017-05-19] MEDS ORDERED: PENDING SANTYL ORDER FOR WOUND CARE XX PRN (08:00)
[2017-05-19 08:02] LABS: ALBUMIN 2.7 g/dl (3.3-4.9); ALBUMIN/GLOBULIN RATIO 0.81; BILIRUBIN,INDIRECT 0.2 mg/dl (0-1.1); BILIRUBIN,TOTAL 0.2 mg/dl (0.2-1.3); CALCIUM 8.7 mg/dl (8.4-10.2); CREATININE 0.62 mg/dl (0.61-1.24); MAGNESIUM 2.2 mg/dl (1.7-2.5); PHOSPHORUS 3.7 mg/dl (2.5-4.9); POTASSIUM 3.9 mmol/L (3.5-5.1)
[2017-05-19 08:18] LABS: T3 UPTAKE 47.4 % (23.5-40.5)
[2017-05-19 08:32] LABS: THYROID STIMULATING HORMONE 1.36 MIU/L (0.465-4.680)
[2017-05-19] MEDS: METOPROLOL (XL) 50 MG TAB PO SCH (08:51)
[2017-05-19] MEDS: GABAPENTIN 300 MG CAP PO SCH ×3 (08:52→21:58)
[2017-05-19] MEDS: ATORVASTATIN 10 MG TAB PO SCH (08:52)
[2017-05-19] MEDS: ASPIRIN 81 MG TAB PO SCH (08:52)
[2017-05-19] MEDS: FINASTERIDE 5 MG TAB PO SCH (08:52)
[2017-05-19] MEDS: FUROSEMIDE 40 MG INJ IV SCH (08:52)
[2017-05-19] MEDS: ENOXAPARIN 40 MG/0.4 ML SYG SC SCH (08:56)
[2017-05-19] MEDS: HEPARIN 5,000 UNIT/0.5 ML VIAL SC SCH (09:00)
[2017-05-19] MEDS ORDERED: PANTOPRAZOLE (EC) 40 MG TAB PO SCH (09:00)
--- NOTE | 2017-05-19 14:09 | PN ---
Date/Time of Note Date/Time of Note DATE: 05/19/17 TIME: 13:59 Assessment/Plan VTE Prophylaxis VTE Prophylaxis Intervention: LMWH Lines/Catheters IV [facility]from [facility] Peripheral IV Urinary Cath still in place: No Assessment/Plan Chief Complaint/Hosp Course 1. Acute respiratory failure secondary to pulmonary edema and/or pneumonia History of CHF reported, follow-up on echo Continue Lasix Follow-up in cardiology recommendations Continue antibiotics Rocephin and azithromycin 2. Atrial fibrillation with rapid ventricular response. Monitor on telemetry. Paralegal Instructor following. Continue on beta-stefany for now. Cardizem as needed. Anticoagulation per transportation coordinator, continue antiplatelet therapy 3. Prostatitis Patient does have history of BPH, continue Rocephin Follow urine culture Continue on Flomax 4. History of CVA Patient is bedbound Continue aspirin and Lipitor 5. Anemia likely of chronic disease. Follow-up on iron panel. Monitor H&H. 6. Elevated lipase level. Patient denies any abdominal pain at this time. Monitor for now Prophylaxis: Lovenox Problems: Subjective 24 Hr Interval Summary Constitutional: no complaints Exam/Review of Systems Vital Signs Vitals Vital Signs Date Time Temp Pulse Resp B/P Pulse Ox O2 Delivery O2 Flow Rate FiO2 05/19/17 12:33 105 05/19/17 11:31 98.0 17 96 05/19/17 10:39 3.0 05/19/17 08:20 Nasal Cannula Intake and Output 05/18/17 05/18/17 05/19/17 15:00 23:00 07:00 Intake Total 410 ml 600 ml Output Total 950 ml 1350 ml Balance -540 ml -750 ml Exam Constitutional: alert Respiratory: clear to auscultation Cardiovascular: regular rate and rhythm Gastrointestinal: soft, No distended Musculoskeletal: nl extremities to inspection Results Result Diagram: 05/19/17 0631 05/19/17 0631 Results 24 hrs Laboratory Tests Test 05/18/17 16:04 05/18/17 21:07 05/19/17 06:31 Creatine Kinase 54 41 Creatine Kinase Index 16.0 17.3 Creatinine Kinase MB (Mass) 8.66 H 7.09 H Troponin I < 0.012 < 0.012 White Blood Count 6.3 # Red Blood Count 3.81 L Hemoglobin 10.4 L Hematocrit 32.2 L Mean Corpuscular Volume 84.5 Mean Corpuscular Hemoglobin 27.3 L Mean Corpuscular Hemoglobin Concent 32.3 Red Cell Distribution Width 16.0 H Platelet Count 297 Mean Platelet Volume 10.7 H Neutrophils % 85.0 H Lymphocytes % 9.1 L Monocytes % 5.4 Eosinophils % 0.0 Basophils % 0.0 Nucleated Red Blood Cells % 0.0 Neutrophils # 5.3 Lymphocytes # 0.6 L Monocytes # 0.3 Eosinophils # 0.0 Basophils # 0.0 Nucleated Red Blood Cells # 0.0 Sodium Level 139 Potassium Level 3.9 Chloride Level 102 Carbon Dioxide Level 31 Anion Gap 10 Blood Urea Nitrogen 18 Creatinine 0.62 Glucose Level 116 Hemoglobin A1c 5.9 Calcium Level 8.7 Phosphorus Level 3.7 Magnesium Level 2.2 Iron Level 11 L Total Iron Binding Capacity 236 L Percent Iron Saturation 5 L Total Bilirubin 0.2 Direct Bilirubin 0.00 Indirect Bilirubin 0.2 Aspartate Amino Transf (AST/SGOT) 20 Alanine Aminotransferase (ALT/SGPT) 43 Alkaline Phosphatase 173 H Total Protein 6.0 L Albumin 2.7 L Globulin 3.30 H Albumin/Globulin Ratio 0.81 Triglycerides Level 77 Cholesterol Level 85 L LDL Cholesterol, Calculated 42 HDL Cholesterol 28 L Cholesterol/HDL Ratio 3.0 Thyroid Stimulating Hormone (TSH) 1.360 Free Thyroxine Index 2.18 Thyroxine (T4) 4.6 L Triiodothyronine (T3) Uptake 47.4 H Medications Medications Current Medications Aspirin (Aspirin) 81 mg DAILY PO Last administered on 05/19/17 08:52; Admin Dose 81 MG; Start 05/19/17 at 09:00 Finasteride (Proscar) 5 mg DAILY PO Last administered on 05/19/17 08:52; Admin Dose 5 MG; Start 05/19/17 at 09:00 Gabapentin (Neurontin) 300 mg TID PO Last administered on 05/19/17 13:20; Admin Dose 300 MG; Start 05/18/17 at 21:00 Tamsulosin HCl (Flomax) 0.4 mg HS PO Last administered on 05/18/17 21:44; Admin Dose 0.4 MG; Start 05/18/17 at 21:00 Atorvastatin Calcium (Lipitor) 10 mg DAILY PO Last administered on 05/19/17 08:52; Admin Dose 10 MG; Start 05/19/17 at 09:00 Ondansetron HCl (Zofran Inj) 4 mg Q6H PRN IV NAUSEA AND/OR VOMITING; Start at 15:30 Acetaminophen (Tylenol Tab) 650 mg Q6H PRN PO PAIN LEVEL 1-3 OR FEVER; Start 05/18/17 at 15:30 Acetaminophen (Tylenol Supp) 650 mg Q6H PRN [place] PAIN LEVEL 1-3 OR FEVER; Start 05/18/17 at 15:30 Acetaminophen/ Hydrocodone Bitart ([place] (5/325)) 1 tab Q6H PRN PO MODERATE PAIN LEVEL 4-6 Last administered on 05/18/17 22:10; Admin Dose 1 TAB; Start 05/18/17 at 15:30 Acetaminophen/ Hydrocodone Bitart ([place] (5/325)) 2 tab Q6H PRN PO SEVERE PAIN LEVEL 7-10; Start 05/18/17 at 15:30 Morphine Sulfate (morphine) 2 mg Q4H PRN IV SEVERE PAIN LEVEL 7-10; Start at 15:30 Docusate Sodium (Colace) 100 mg Q12H PRN PO CONSTIPATION; Start 05/18/17 at 15 :30 Magnesium Hydroxide (Milk Of Mag) 30 ml DAILY PRN PO CONSTIPATION; Start 05/18 at 15:30 Bisacodyl (Dulcolax Supp) 10 mg DAILY PRN [place] CONSTIPATION; Start 05/18/17 at 15:30 Pantoprazole (Protonix Iv) 40 mg DAILY@06 IV Last administered on 05/19/17 06 :42; Admin Dose 40 MG; Start 05/19/17 at 06:00 Furosemide (Lasix) 40 mg DAILY IV Last administered on 05/19/17 08:52; Admin Dose 40 MG; Start 05/19/17 at 09:00 Carvedilol (Coreg) 6.25 mg BID PO Last administered on 05/19/17 08:52; Admin Dose 6.25 MG; Start 05/18/17 at 21:00 Metoprolol Succinate (Toprol Xl) 50 mg BID PO Last administered on 05/19/17 08:51; Admin Dose 50 MG; Start 05/18/17 at 17:00 Enoxaparin Sodium 40 mg 40 mg Q12 SC Last administered on 05/19/17 08:56; Admin Dose 40 MG; Start 05/18/17 at 21:00 Azithromycin 250 ml @ 250 mls/hr Q24H IVPB Last administered on 05/18/17 22: 11; Admin Dose 250 MLS/HR; Start 05/18/17 at 16:30 Ceftriaxone Sodium (Rocephin) 50 ml @ 100 mls/hr Q24H IVPB Last administered on 05/18/17 16:43; Admin Dose 100 MLS/HR; Start 05/18/17 at 16:30 Miscellaneous Information (Pending [facility] Order For Wound Care) This patient simpson... PRN PRN XX WOUND CARE; Start 05/19/17 at 08:00 Influenza Virus Vaccine (Fluzone) 0.5 ml ONCE ONCE IM* ; Start 05/20/17 at 14: 00; Stop 05/20/17 at 14:01 NICOLE SANTANA May 19, 2017 14:09
[2017-05-19] MEDS: CEFTRIAXONE 1 GM/50 ML (PMX) 50 ML IVPB SCH (14:59)
--- NOTE | 2017-05-19 15:57 | RADRPT ---
Echocardiogram Report Patient Name: MARIA INES JIMÉNEZ Gender: Male Date: 1940 Study Date: 19-May-2017 Instructor Bridge: Dandy Garza [facility] Location: [id number] Ref. Physician: PRANEETH POOL Quality: Adequate Procedures: Transthoracic echocardiogram with complete 2D, M-Mode, and doppler examination. Indications: Congestive Heart Failure. 2D/M Mode Doppler Measurement Value Normal Ranges Measurement Value Normal Ranges LVIDd 2D 5.0 3.5 - 5.6 cm AV Peak Cy 0.9 m/sec LVIDs 2D 4.5 2.1 - 4.1 cm AV Peak PG 3.0 mmHg FS 2D 10.5 % LVOT Peak Cy 0.7 m/sec LVPWd 2D 1.2 0.6 - 1.1 cm LVOT Peak PG 2.0 mmHg IVSd 2D 1.1 0.6 - 1.1 cm MV E Peak Cy 0.9 m/sec IVS/LVPW 2D 1.0 MV Decel Time 155 msec AoR Diam 2D 3.0 2.0 - 3.7 cm MR Peak PG 71.0 mmHg LA/Ao 2D 1 0 - 1 MR Peak Cy 4.2 m/sec EDV 2D 128.0 cm3 TR Peak Cy 2.6 m/sec ESV 2D 91.7 cm3 TR Peak PG 28.0 mmHg LA Dimen 2D 4.0 2.3 - 4.0 cm RVSP 43.0 mmHg Findings Left Ventricle: Normal left ventricular cavity size. Left ventricular wall thickness upper limits of normal. Severe global left ventricular systolic dysfunction. Ejection fraction is visually estimated at 20 %. Abnormal Diastolic Function. Right Ventricle: Normal right ventricular size. Mild right ventricular systolic dysfunction. Left Atrium: The left atrium is normal in size. Right Atrium: There is moderate enlargement of right atrium. Mitral Valve: Mild mitral leaflet calcification. Mild mitral annular calcification. Moderate mitral valve regurgitation. Aortic Valve: Aortic sclerosis without stenosis. Mild aortic valve regurgitation. Tricuspid Valve: Normal appearance of the tricuspid valve. Estimated peak PA systolic pressure 43 mmHg. There is mild to moderate tricuspid regurgitation. Pulmonic Valve: Pulmonic valve not well visualized. There is trace pulmonic regurgitation. Pericardium: Normal pericardium with no significant pericardial effusion. Aorta: Normal aortic root. IVC: Dilated IVC without respiratory collapse consistent with elevated right atrial pressure. Conclusions Normal left ventricular cavity size. Left ventricular wall thickness upper limits of normal. Severe global left ventricular systolic dysfunction. Ejection fraction is visually estimated at 20 %. Abnormal Diastolic Function. Mild mitral leaflet calcification. Mild mitral annular calcification. Moderate mitral valve regurgitation. Aortic sclerosis without stenosis. Mild aortic valve regurgitation. Normal appearance of the tricuspid valve. Estimated peak PA systolic pressure 43 mmHg. There is mild to moderate tricuspid regurgitation. Electronically Signed By: Juan Pablo Wright 19-May-2017 15:56:57 -0800 Patient Name: MARIA INES JIMÉNEZ Study Date: 19-May-[id number]
--- NOTE | 2017-05-19 17:27 | CONS ---
DATE OF ADMISSION: 05/18/2017 DATE OF CONSULTATION: 05/19/2017 TYPE OF CONSULTATION: Cardiology. REFERRING PHYSICIAN: Dr. Pierce. REASON FOR EVALUATION: Atrial fibrillation with rapid ventricular response. HISTORY OF PRESENT ILLNESS: The patient is a 56-year-old gentleman with prior history of CVA 4 carlin hs ago, history of atrial fibrillation, history of hypertension, history of possible pneumonia as we ll as BPH, who comes to the hospital now for evaluation of atrial fibrillation he is in atrial fibri llation with rapid ventricular response. The patient is much better rate controlled now. He has be en initiated on global anticoagulation, which is appropriate, given fairly high CHADS score, especia lly in the setting of a CVA. For now, the patient is fairly comfortable, will continue the patient' s medicines as needed. We will add additional dose of beta stefany to rate control and will try to facilitate a long-term anticoagulation strategy in the form of oral anticoagulant. PAST MEDICAL HISTORY: 1. Hypertension. 2. Dyslipidemia. 3. History of coronary artery disease. 4. History of recent cerebrovascular accident. 5. History of heart failure. 6. History of atrial fibrillation, now paroxysmal. ALLERGIES: NO KNOWN ALLERGIES. SOCIAL HISTORY: The patient does not smoke, does not drink, does not use drugs. FAMILY HISTORY: Negative for sudden cardiac or premature coronary artery disease. MEDICATIONS: Include: 1. Aspirin 81 mg once daily. 2. Proscar 20 mg p.o. once a day. 3. Atorvastatin 10 mg p.o. once daily. 4. Lasix 40 mg. 5. IV levothyroxine. 6. Coreg 6.25 mg p.o. b.i.d. 7. Lovenox 40 mg subq b.i.d. 8. Metoprolol succinate 50 mg p.o. once a day. REVIEW OF SYSTEMS: CONSTITUTIONAL: No fevers, no chills, no shortness. HEENT: No changes in vision or hearing. CARDIAC: Chest pain and atrial fibrillation. RESPIRATORY: Shortness of breath, acute on chronic, improved with. GASTROINTESTINAL: No nausea, vomiting, diarrhea, constipation. GENITOURINARY: No dysuria, hematuria. NEUROLOGIC: Prior history of CVA. PHYSICAL EXAMINATION VITAL SIGNS: Temperature is 98.0, heart rate is 105, blood pressure 130/60. GENERAL: He is a thin gentleman in no acute distress, alert and oriented x3, aware of his condition . HEAD: Normocephalic, atraumatic. Eyes anicteric. NECK: Supple. JVD 6-7 cm. No lymphadenopathy. HEART: Regular with soft holosystolic murmur at the apex. PMI is minimally nondisplaced. There is no S3. LUNGS: Coarse at bases. ABDOMEN: Distended, bowel sounds are present. There is no hepatosplenomegaly EXTREMITIES: Show no evidence of clubbing, cyanosis. Trace. There is trace edema. ECG read as atrial fibrillation or if [address]-T changes. LABORATORY DATA: White blood cell count 6.3, hemoglobin is 10.4, platelets 129. INR is 0.9 to sodi um 139, potassium 3.9. His BUN is 19, creatinine 0.8. Troponin is negative at 0.012. ASSESSMENT AND PLAN: 1. The patient has noted atrial fibrillation. He has had initial response, rate better controlled. He is now on Coreg and metoprolol consolidated therapy and 1 b.i.d Metoprolol dosing and follow ex pectantly. 2. Secondary to the patient's exercise stress pressure given his CVA. Long-term anticoagulation re quired. I think at this particular patient Eliquis b.i.d. dosing would be most appropriate. 3. Hypertension. Blood pressure well optimized. Continue to adjust therapy as needed. 4. Coronary artery disease. No chest pain reported now. Troponins are negative. We will continue to adjust therapy as indicated. 5. Shortness of breath, improved, with therapy, continue diuresis for 2D echo. I would like to thank Dr. Caldwell for referring this patient for my evaluation. Dictated By: CLAUDIO NIETO MD ML/MARJAN Conf#: [id number] DID#: [id number]
[2017-05-19] MEDS: APIXABAN 5 MG TABLET PO SCH (21:58)
[2017-05-19] MEDS: METOPROLOL 25 MG TAB NGT SCH (21:58)
[2017-05-19] MEDS: SERTRALINE 50 MG TAB PO SCH (21:58)
[2017-05-19] MEDS: TAMSULOSIN (SR) 0.4 MG CAP PO SCH (21:58)
[2017-05-20] VITALS (14 sets, daily range): BP systolic 90–110; BP diastolic 51–70; PULSE 58–111; RESP 16–20
[2017-05-20] MEDS: LEVALBUTEROL (NEB) 0.63 MG/3 ML AMP HHN PRN (05:42)
[2017-05-20] MEDS: PANTOPRAZOLE 40 MG INJ IV SCH (06:42)
[2017-05-20] MEDS: LEVOTHYROXINE 50 MCG TAB PO SCH (06:42)
[2017-05-20 07:34] LABS: BASOPHILS % 0.1 % (0.0-2.0); EOSINOPHILS # 0.1 10^3/ul (0.0-0.5); EOSINOPHILS % 1.7 % (0.0-7.0); HEMATOCRIT 33.3 % (42.0-52.0); HEMOGLOBIN 10.7 g/dl (14.0-18.0); LYMPHOCYTES # 0.9 10^3/ul (0.8-2.9); LYMPHOCYTES % 10.9 % (15.0-51.0); MEAN CORPUSCULAR HEMOGLOBIN 27.6 pg (29.0-33.0); MEAN CORPUSCULAR HGB CONC 32.1 g/dl (32.0-37.0); MEAN PLATELET VOLUME 11.1 fl (7.4-10.4); MONOCYTE # 0.7 10^3/ul (0.3-0.9); MONOCYTES % 8.5 % (0.0-11.0); NEUTROPHIL # 6.5 10^3/ul (1.6-7.5); NEUTROPHILS % 78.2 % (39.0-77.0); PLATELET COUNT 305 10^3/UL (140-415); RED BLOOD COUNT 3.87 10^6/ul (4.70-6.10); RED CELL DISTRIBUTION WIDTH 16.1 % (11.5-14.5); WHITE BLOOD COUNT 8.4 10^3/ul (4.8-10.8)
[2017-05-20 07:56] LABS: CALCIUM 8.7 mg/dl (8.4-10.2); CREATININE 0.62 mg/dl (0.61-1.24); POTASSIUM 3.7 mmol/L (3.5-5.1)
[2017-05-20] MEDS: ATORVASTATIN 10 MG TAB PO SCH (08:32)
[2017-05-20] MEDS: GABAPENTIN 300 MG CAP PO SCH ×3 (08:32→21:51)
[2017-05-20] MEDS: APIXABAN 5 MG TABLET PO SCH ×2 (08:32→21:51)
[2017-05-20] MEDS: ASPIRIN 81 MG TAB PO SCH (08:33)
[2017-05-20] MEDS: FINASTERIDE 5 MG TAB PO SCH (08:33)
[2017-05-20] MEDS: FUROSEMIDE 40 MG INJ IV SCH (08:53)
[2017-05-20] MEDS: METOPROLOL 25 MG TAB NGT SCH ×2 (08:53→21:00)
[2017-05-20] MEDS ORDERED: PENDING SANTYL ORDER FOR WOUND CARE XX PRN ×2 (10:30→12:00)
[2017-05-20] MEDS: COLLAGENASE 30 GM TUBE TOP SCH (11:00)
--- NOTE | 2017-05-20 11:16 | CONS ---
Date/Time of Note Date/Time of Note DATE: 05/20/17 TIME: 11:14 Assessment/Plan Assessment/Plan Additional Assessment/Plan 1. The patient has noted atrial fibrillation. He has had initial response, rate better controlled. He is now on Coreg and metoprolol consolidated therapy and 1 b.i.d Metoprolol dosing and follow expectantly. BETTER now. 2. Secondary to the patient's exercise stress pressure given his CVA. Long- term anticoagulation required. I think at this particular patient Eliquis b.i.d. dosing would be most appropriate.Tolerated first doses. 3. Hypertension. Blood pressure well optimized. Continue to adjust therapy as needed. 4. Coronary artery disease. No chest pain reported now. Troponins are negative. We will continue to adjust therapy as indicated.NO CP now. 5. Shortness of breath, improved, with therapy, continue diuresis - better now. 6. CHF - syst HF, acute on chronic- EF 20% - ok to diurese as BP allows Consultation Date/Type/Reason Admit Date/Time May 18, 2017 at 13:06 Initial Consult Date 24 HR Interval Summary Free Text/Dictation No acute vents - better overall - syst HF, acute on chronic- EF 20% - ok to diurese as BP allows ROS: No fever, no chills, no nausea, no vomiting, no diarrhea/constipation No recent weight changes No chest pain, no PND, no orthopnea - improved SOB No dizziness, blurred vision No thirst, no heat or cold intolerance Exam/Review of Systems Vital Signs Vitals Vital Signs Date Time Temp Pulse Resp B/P Pulse Ox O2 Delivery O2 Flow Rate FiO2 05/20/17 08:11 89 05/20/17 08:00 Nasal Cannula 2.0 05/20/17 07:51 98.0 16 90/58 97 Intake and Output 05/19/17 05/19/17 05/20/17 14:59 22:59 06:59 Intake Total 900 ml 300 ml Output Total 1300 ml 450 ml Balance -400 ml -150 ml Exam General: WN/WD/NAD, AOx 2-3 HEENT: Unicetric/atraumatic/EOMI (follow commands) NECK: JVD elevated, no thyromegaly Lymph: no lymphadenopathy HEART: irregular with no S3, II/ systolic murmur at apex LUNGS: Coarse sounds ABD: soft, NT, ND, +BS : Intact Neuro: h/pcva SKIN: chronic changes EXT: trace edema Results Result Diagram: 05/20/17 0642 05/20/17 0641 Results 24 hrs Laboratory Tests Test 05/20/17 06:41 05/20/17 06:42 Sodium Level 139 Potassium Level 3.7 Chloride Level 101 Carbon Dioxide Level 33 H Anion Gap 9 Blood Urea Nitrogen 26 H Creatinine 0.62 Glucose Level 104 Calcium Level 8.7 White Blood Count 8.4 # Red Blood Count 3.87 L Hemoglobin 10.7 L Hematocrit 33.3 L Mean Corpuscular Volume 86.0 Mean Corpuscular Hemoglobin 27.6 L Mean Corpuscular Hemoglobin Concent 32.1 Red Cell Distribution Width 16.1 H Platelet Count 305 Mean Platelet Volume 11.1 H Neutrophils % 78.2 H Lymphocytes % 10.9 L Monocytes % 8.5 Eosinophils % 1.7 Basophils % 0.1 Nucleated Red Blood Cells % 0.0 Neutrophils # 6.5 Lymphocytes # 0.9 Monocytes # 0.7 Eosinophils # 0.1 Basophils # 0.0 Nucleated Red Blood Cells # 0.0 Medications Medications Current Medications Aspirin (Aspirin) 81 mg DAILY PO Last administered on 05/20/17 08:33; Admin Dose 81 MG; Start 05/19/17 at 09:00 Finasteride (Proscar) 5 mg DAILY PO Last administered on 05/20/17 08:33; Admin Dose 5 MG; Start 05/19/17 at 09:00 Gabapentin (Neurontin) 300 mg TID PO Last administered on 05/20/17 08:32; Admin Dose 300 MG; Start 05/18/17 at 21:00 Tamsulosin HCl (Flomax) 0.4 mg HS PO Last administered on 05/19/17 21:58; Admin Dose 0.4 MG; Start 05/18/17 at 21:00 Atorvastatin Calcium (Lipitor) 10 mg DAILY PO Last administered on 05/20/17 08:32; Admin Dose 10 MG; Start 05/19/17 at 09:00 Ondansetron HCl (Zofran Inj) 4 mg Q6H PRN IV NAUSEA AND/OR VOMITING; Start at 15:30 Acetaminophen (Tylenol Tab) 650 mg Q6H PRN PO PAIN LEVEL 1-3 OR FEVER; Start 05/18/17 at 15:30 Acetaminophen (Tylenol Supp) 650 mg Q6H PRN [place] PAIN LEVEL 1-3 OR FEVER; Start 05/18/17 at 15:30 Acetaminophen/ Hydrocodone Bitart ([place] (5/325)) 1 tab Q6H PRN PO MODERATE PAIN LEVEL 4-6 Last administered on 05/18/17 22:10; Admin Dose 1 TAB; Start 05/18/17 at 15:30 Acetaminophen/ Hydrocodone Bitart ([place] (5/325)) 2 tab Q6H PRN PO SEVERE PAIN LEVEL 7-10; Start 05/18/17 at 15:30 Morphine Sulfate (morphine) 2 mg Q4H PRN IV SEVERE PAIN LEVEL 7-10; Start at 15:30 Docusate Sodium (Colace) 100 mg Q12H PRN PO CONSTIPATION; Start 05/18/17 at 15 :30 Magnesium Hydroxide (Milk Of Mag) 30 ml DAILY PRN PO CONSTIPATION; Start 05/18 at 15:30 Bisacodyl (Dulcolax Supp) 10 mg DAILY PRN [place] CONSTIPATION; Start 05/18/17 at 15:30 Pantoprazole (Protonix Iv) 40 mg DAILY@06 IV Last administered on 05/20/17 06 :42; Admin Dose 40 MG; Start 05/19/17 at 06:00 Furosemide 40 mg 40 mg DAILY IV Last administered on 05/19/17 08:52; Admin Dose 40 MG; Start 05/19/17 at 09:00 Azithromycin 250 ml @ 250 mls/hr Q24H IVPB Last administered on 05/18/17 22: 11; Admin Dose 250 MLS/HR; Start 05/18/17 at 16:30 Ceftriaxone Sodium (Rocephin) 50 ml @ 100 mls/hr Q24H IVPB Last administered on 05/19/17 14:59; Admin Dose 100 MLS/HR; Start 05/18/17 at 16:30 Miscellaneous Information (Pending Santyl Order For Wound Care) This patient simpson... PRN PRN XX WOUND CARE; Start 05/19/17 at 08:00 Influenza Virus Vaccine (Fluzone) 0.5 ml ONCE ONCE IM* ; Start 05/20/17 at 14: 00; Stop 05/20/17 at 14:01 Metoprolol Tartrate (Lopressor) 75 mg BID NGT Last administered on 05/19/17 21:58; Admin Dose 75 MG; Start 05/19/17 at 21:00 Apixaban (Eliquis) 5 mg BID PO Last administered on 05/20/17 08:32; Admin Dose 5 MG; Start 05/19/17 at 21:00 Sertraline HCl (Zoloft) 50 mg HS PO Last administered on 05/19/17 21:58; Admin Dose 50 MG; Start 05/19/17 at 21:00 Miscellaneous Information (Pending Santyl Order For Wound Care) This patient simpson... PRN PRN XX WOUND CARE; Start 05/20/17 at 10:30 Collagenase (Santyl) 1 applic DAILY TOP ; Start 05/20/17 at 11:00 CLAUDIO NIETO MD May 20, 2017 11:16
[2017-05-20] MEDS ORDERED: COLLAGENASE 30 GM TUBE TOP SCH (12:00)
--- NOTE | 2017-05-20 13:35 | PN ---
Date/Time of Note Date/Time of Note DATE: 05/20/17 TIME: 13:30 Assessment/Plan VTE Prophylaxis VTE Prophylaxis Intervention: LMWH Lines/Catheters IV [facility] [place] [facility] Urinary Cath still in place: No Assessment/Plan Chief Complaint/Hosp Course 1. Acute respiratory failure secondary to systolic CHF exacerbation History of CHF reported, echo shows an EF of 20% with abnormal diastolic function Continue Lasix Cardiology consultation appreciated DC azithromycin 2. Atrial fibrillation with rapid ventricular response Continue metoprolol, cardiology has started Eliquis 3. Prostatitis Patient does have history of BPH, continue Rocephin Follow urine culture Continue on Flomax 4. Debility secondary to history of CVA Patient is bedbound Continue aspirin and Lipitor Social consultation appreciated and patient is not safe to return home as he lives alone meeting manager to assist with long term placement for further PT, case briefer aware 5. Anemia likely of chronic disease. Follow-up on iron panel. Monitor H&H. 6. Elevated lipase level. Patient denies any abdominal pain at this time. Monitor for now Prophylaxis: Lovenox Problems: Subjective 24 Hr Interval Summary Constitutional: no complaints Exam/Review of Systems Vital Signs Vitals Vital Signs Date Time Temp Pulse Resp B/P Pulse Ox O2 Delivery O2 Flow Rate FiO2 05/20/17 12:09 86 05/20/17 11:24 97.8 16 91/58 98 05/20/17 08:00 Nasal Cannula 2.0 Intake and Output 05/19/17 05/19/17 05/20/17 15:00 23:00 07:00 Intake Total 900 ml 300 ml Output Total 1300 ml 450 ml Balance -400 ml -150 ml Exam Constitutional: alert Respiratory: clear to auscultation Cardiovascular: regular rate and rhythm Gastrointestinal: soft, No distended Musculoskeletal: nl extremities to inspection Results Result Diagram: 05/20/17 0642 05/20/17 0641 Results 24 hrs Laboratory Tests Test 05/20/17 06:41 05/20/17 06:42 Sodium Level 139 Potassium Level 3.7 Chloride Level 101 Carbon Dioxide Level 33 H Anion Gap 9 Blood Urea Nitrogen 26 H Creatinine 0.62 Glucose Level 104 Calcium Level 8.7 White Blood Count 8.4 # Red Blood Count 3.87 L Hemoglobin 10.7 L Hematocrit 33.3 L Mean Corpuscular Volume 86.0 Mean Corpuscular Hemoglobin 27.6 L Mean Corpuscular Hemoglobin Concent 32.1 Red Cell Distribution Width 16.1 H Platelet Count 305 Mean Platelet Volume 11.1 H Neutrophils % 78.2 H Lymphocytes % 10.9 L Monocytes % 8.5 Eosinophils % 1.7 Basophils % 0.1 Nucleated Red Blood Cells % 0.0 Neutrophils # 6.5 Lymphocytes # 0.9 Monocytes # 0.7 Eosinophils # 0.1 Basophils # 0.0 Nucleated Red Blood Cells # 0.0 Medications Medications Current Medications Aspirin (Aspirin) 81 mg DAILY PO Last administered on 05/20/17 08:33; Admin Dose 81 MG; Start 05/19/17 at 09:00 Finasteride (Proscar) 5 mg DAILY PO Last administered on 05/20/17 08:33; Admin Dose 5 MG; Start 05/19/17 at 09:00 Gabapentin (Neurontin) 300 mg TID PO Last administered on 05/20/17 08:32; Admin Dose 300 MG; Start 05/18/17 at 21:00 Tamsulosin HCl (Flomax) 0.4 mg HS PO Last administered on 05/19/17 21:58; Admin Dose 0.4 MG; Start 05/18/17 at 21:00 Atorvastatin Calcium (Lipitor) 10 mg DAILY PO Last administered on 05/20/17 08:32; Admin Dose 10 MG; Start 05/19/17 at 09:00 Ondansetron HCl (Zofran Inj) 4 mg Q6H PRN IV NAUSEA AND/OR VOMITING; Start at 15:30 Acetaminophen (Tylenol Tab) 650 mg Q6H PRN PO PAIN LEVEL 1-3 OR FEVER; Start 05/18/17 at 15:30 Acetaminophen (Tylenol Supp) 650 mg Q6H PRN [place] PAIN LEVEL 1-3 OR FEVER; Start 05/18/17 at 15:30 Acetaminophen/ Hydrocodone Bitart ([place] (5/325)) 1 tab Q6H PRN PO MODERATE PAIN LEVEL 4-6 Last administered on 05/18/17 22:10; Admin Dose 1 TAB; Start 05/18/17 at 15:30 Acetaminophen/ Hydrocodone Bitart ([place] (5/325)) 2 tab Q6H PRN PO SEVERE PAIN LEVEL 7-10; Start 05/18/17 at 15:30 Morphine Sulfate (morphine) 2 mg Q4H PRN IV SEVERE PAIN LEVEL 7-10; Start at 15:30 Docusate Sodium (Colace) 100 mg Q12H PRN PO CONSTIPATION; Start 05/18/17 at 15 :30 Magnesium Hydroxide (Milk Of Mag) 30 ml DAILY PRN PO CONSTIPATION; Start 05/18 at 15:30 Bisacodyl (Dulcolax Supp) 10 mg DAILY PRN [place] CONSTIPATION; Start 05/18/17 at 15:30 Pantoprazole (Protonix Iv) 40 mg DAILY@06 IV Last administered on 05/20/17 06 :42; Admin Dose 40 MG; Start 05/19/17 at 06:00 Furosemide 40 mg 40 mg DAILY IV Last administered on 05/19/17 08:52; Admin Dose 40 MG; Start 05/19/17 at 09:00 Azithromycin 250 ml @ 250 mls/hr Q24H IVPB Last administered on 05/18/17 22: 11; Admin Dose 250 MLS/HR; Start 05/18/17 at 16:30 Ceftriaxone Sodium (Rocephin) 50 ml @ 100 mls/hr Q24H IVPB Last administered on 05/19/17 14:59; Admin Dose 100 MLS/HR; Start 05/18/17 at 16:30 Influenza Virus Vaccine (Fluzone) 0.5 ml ONCE ONCE IM* ; Start 05/20/17 at 14: 00; Stop 05/20/17 at 14:01 Metoprolol Tartrate (Lopressor) 75 mg BID NGT Last administered on 05/19/17 21:58; Admin Dose 75 MG; Start 05/19/17 at 21:00 Apixaban (Eliquis) 5 mg BID PO Last administered on 05/20/17 08:32; Admin Dose 5 MG; Start 05/19/17 at 21:00 Sertraline HCl (Zoloft) 50 mg HS PO Last administered on 05/19/17 21:58; Admin Dose 50 MG; Start 05/19/17 at 21:00 Miscellaneous Information (Pending Santyl Order For Wound Care) This patient simpson... PRN PRN XX WOUND CARE; Start 05/20/17 at 10:30 Collagenase (Santyl) 1 applic DAILY TOP ; Start 05/20/17 at 11:00 NICOLE SANTANA 25, 2017 13:35
[2017-05-20] MEDS ORDERED: INFLUENZA VIRUS VACCINE 0.5 ML (DISPENSING) IM* ONE (14:00)
[2017-05-20] MEDS: CEFTRIAXONE 1 GM/50 ML (PMX) 50 ML IVPB SCH (17:00)
[2017-05-20] MEDS: SERTRALINE 50 MG TAB PO SCH (21:51)
[2017-05-20] MEDS: TAMSULOSIN (SR) 0.4 MG CAP PO SCH (21:51)
[2017-05-21] VITALS (13 sets, daily range): BP systolic 87–105; BP diastolic 55–63; PULSE 84–114; RESP 17–19
[2017-05-21] MEDS: PANTOPRAZOLE (EC) 40 MG TAB PO SCH (05:41)
[2017-05-21] MEDS: LEVOTHYROXINE 50 MCG TAB PO SCH (05:41)
[2017-05-21 07:53] LABS: CALCIUM 8.7 mg/dl (8.4-10.2); CREATININE 0.56 mg/dl (0.61-1.24); MAGNESIUM 2.1 mg/dl (1.7-2.5); POTASSIUM 4.1 mmol/L (3.5-5.1)
[2017-05-21] MEDS: METOPROLOL 25 MG TAB NGT SCH ×2 (09:00→21:00)
[2017-05-21] MEDS: ASPIRIN 81 MG TAB PO SCH (09:02)
[2017-05-21] MEDS: FUROSEMIDE 40 MG INJ IV SCH (09:02)
[2017-05-21] MEDS: APIXABAN 5 MG TABLET PO SCH ×2 (09:03→21:05)
[2017-05-21] MEDS: ATORVASTATIN 10 MG TAB PO SCH (09:03)
[2017-05-21] MEDS: FINASTERIDE 5 MG TAB PO SCH (09:03)
[2017-05-21] MEDS: GABAPENTIN 300 MG CAP PO SCH ×3 (09:03→21:05)
[2017-05-21] MEDS: COLLAGENASE 30 GM TUBE TOP SCH (09:04)
--- NOTE | 2017-05-21 10:29 | CONS ---
Date/Time of Note Date/Time of Note DATE: 05/21/17 TIME: 10:27 Assessment/Plan Assessment/Plan Additional Assessment/Plan 1. The patient has noted atrial fibrillation. He has had initial response, rate better controlled. Did not get his BB in am with low BP - will change dose to 25 mg po TID - hope he tolerates it. 2. Secondary to the patient's exercise stress pressure given his CVA. Long- term anticoagulation required. I think at this particular patient Eliquis b.i.d. dosing would be most appropriate.Tolerated first doses. 3. Hypertension. Blood pressure well optimized. Continue to adjust therapy as needed. NOw borderline - hold lasix today. 4. Coronary artery disease. No chest pain reported now. Troponins are negative. We will continue to adjust therapy as indicated.NO CP now. 5. Shortness of breath, improved, with therapy, continue diuresis - better now. 6. CHF - syst HF, acute on chronic- EF 20% - ok to diurese as BP allows Consultation Date/Type/Reason Admit Date/Time May 18, 2017 at 13:06 24 HR Interval Summary Free Text/Dictation BP borderline - hold lasix today and decrease BB dose. ROS: No fever, no chills, no nausea, no vomiting, no diarrhea/constipation No recent weight changes No chest pain, no PND, no orthopnea No dizziness, blurred vision No thirst, no heat or cold intolerance Exam/Review of Systems Vital Signs Vitals Vital Signs Date Time Temp Pulse Resp B/P Pulse Ox O2 Delivery O2 Flow Rate FiO2 05/21/17 08:31 97.9 104 18 102/61 98 05/21/17 07:51 Nasal Cannula 3.0 Intake and Output 05/20/17 05/20/17 05/21/17 15:00 23:00 07:00 Intake Total 200 ml 200 ml Output Total 550 ml 400 ml Balance -350 ml -200 ml Exam General: WN/WD/NAD, AOx 3 HEENT: Unicetric/atraumatic/EOMI (follow commands) NECK: JVD elevated, no thyromegaly Lymph: no lymphadenopathy HEART: irregular with no S3, II/ systolic murmur at apex LUNGS: Coarse sounds ABD: soft, NT, ND, +BS : Intact Neuro: non focal SKIN: chronic changes EXT: trace edema Results Result Diagram: 05/20/17 0642 05/21/17 0636 Results 24 hrs Laboratory Tests Test 05/21/17 06:36 Sodium Level 140 Potassium Level 4.1 Chloride Level 101 Carbon Dioxide Level 33 H Anion Gap 10 Blood Urea Nitrogen 21 H Creatinine 0.56 L Glucose Level 93 Calcium Level 8.7 Magnesium Level 2.1 Medications Medications Current Medications Aspirin (Aspirin) 81 mg DAILY PO Last administered on 05/21/17 09:02; Admin Dose 81 MG; Start 05/19/17 at 09:00 Finasteride (Proscar) 5 mg DAILY PO Last administered on 05/21/17 09:03; Admin Dose 5 MG; Start 05/19/17 at 09:00 Gabapentin (Neurontin) 300 mg TID PO Last administered on 05/21/17 09:03; Admin Dose 300 MG; Start 05/18/17 at 21:00 Tamsulosin HCl (Flomax) 0.4 mg HS PO Last administered on 05/20/17 21:51; Admin Dose 0.4 MG; Start 05/18/17 at 21:00 Atorvastatin Calcium (Lipitor) 10 mg DAILY PO Last administered on 05/21/17 09:03; Admin Dose 10 MG; Start 05/19/17 at 09:00 Ondansetron HCl (Zofran Inj) 4 mg Q6H PRN IV NAUSEA AND/OR VOMITING; Start at 15:30 Acetaminophen (Tylenol Tab) 650 mg Q6H PRN PO PAIN LEVEL 1-3 OR FEVER; Start 05/18/17 at 15:30 Acetaminophen (Tylenol Supp) 650 mg Q6H PRN [place] PAIN LEVEL 1-3 OR FEVER; Start 05/18/17 at 15:30 Acetaminophen/ Hydrocodone Bitart ([place] (5/325)) 1 tab Q6H PRN PO MODERATE PAIN LEVEL 4-6 Last administered on 05/18/17 22:10; Admin Dose 1 TAB; Start 05/18/17 at 15:30 Acetaminophen/ Hydrocodone Bitart ([place] (5/325)) 2 tab Q6H PRN PO SEVERE PAIN LEVEL 7-10; Start 05/18/17 at 15:30 Morphine Sulfate (morphine) 2 mg Q4H PRN IV SEVERE PAIN LEVEL 7-10; Start at 15:30 Docusate Sodium (Colace) 100 mg Q12H PRN PO CONSTIPATION; Start 05/18/17 at 15 :30 Magnesium Hydroxide (Milk Of Mag) 30 ml DAILY PRN PO CONSTIPATION; Start 05/18 at 15:30 Bisacodyl (Dulcolax Supp) 10 mg DAILY PRN [place] CONSTIPATION; Start 05/18/17 at 15:30 Furosemide 40 mg 40 mg DAILY IV Last administered on 05/21/17 09:02; Admin Dose 40 MG; Start 05/19/17 at 09:00 Ceftriaxone Sodium (Rocephin) 50 ml @ 100 mls/hr Q24H IVPB Last administered on 05/20/17 17:00; Admin Dose 100 MLS/HR; Start 05/18/17 at 16:30 Metoprolol Tartrate (Lopressor) 75 mg BID NGT Last administered on 05/19/17 21:58; Admin Dose 75 MG; Start 05/19/17 at 21:00 Apixaban (Eliquis) 5 mg BID PO Last administered on 05/21/17 09:03; Admin Dose 5 MG; Start 05/19/17 at 21:00 Sertraline HCl (Zoloft) 50 mg HS PO Last administered on 05/20/17 21:51; Admin Dose 50 MG; Start 05/19/17 at 21:00 Miscellaneous Information (Pending Santyl Order For Wound Care) This patient simpson... PRN PRN XX WOUND CARE; Start 05/20/17 at 10:30 Collagenase (Santyl) 1 applic DAILY TOP Last administered on 05/21/17 09:04; Admin Dose 1 APPLIC; Start 05/20/17 at 11:00 Pantoprazole (Protonix Tab) 40 mg DAILY@06 PO Last administered on 05/21/17 05:41; Admin Dose 40 MG; Start 05/21/17 at 06:00 CLAUDIO NIETO MD May 21, 2017 10:29
[2017-05-21] MEDS: CEFTRIAXONE 1 GM/50 ML (PMX) 50 ML IVPB SCH (16:19)
--- NOTE | 2017-05-21 16:57 | PN ---
Date/Time of Note Date/Time of Note DATE: 05/21/17 TIME: 16:53 Assessment/Plan VTE Prophylaxis VTE Prophylaxis Intervention: LMWH Lines/Catheters IV [facility] [place] [facility] Urinary Cath still in place: No Assessment/Plan Chief Complaint/Hosp Course 1. Acute respiratory failure secondary to systolic CHF exacerbation History of CHF reported, echo shows an EF of 20% with abnormal diastolic function Continue Lasix Cardiology consultation appreciated 2. Atrial fibrillation with rapid ventricular response Continue metoprolol, cardiology has started Eliquis 3. Prostatitis Patient does have history of BPH, continue Rocephin Blood and urine cultures are negative at this point Continue on Flomax 4. 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 Anemia of chronic disease 6. Elevated lipase level. Patient denies any abdominal pain at this time Prophylaxis: Lovenox Discharge planning: inclusion manager to arrange for fci placement Problems: Subjective 24 Hr Interval Summary Constitutional: no complaints Exam/Review of Systems Vital Signs Vitals Vital Signs Date Time Temp Pulse Resp B/P Pulse Ox O2 Delivery O2 Flow Rate FiO2 05/21/17 16:29 84 05/21/17 16:00 94/57 05/21/17 15:55 97.7 17 97 05/21/17 07:51 Nasal Cannula 3.0 Intake and Output 05/20/17 05/20/17 05/21/17 14:59 22:59 06:59 Intake Total 200 ml 200 ml Output Total 550 ml 400 ml Balance -350 ml -200 ml Exam Constitutional: alert Respiratory: clear to auscultation Cardiovascular: regular rate and rhythm Gastrointestinal: soft, No distended Musculoskeletal: nl extremities to inspection Results Result Diagram: 05/20/17 0642 05/21/17 0636 Results 24 hrs Laboratory Tests Test 05/21/17 06:36 Sodium Level 140 Potassium Level 4.1 Chloride Level 101 Carbon Dioxide Level 33 H Anion Gap 10 Blood Urea Nitrogen 21 H Creatinine 0.56 L Glucose Level 93 Calcium Level 8.7 Magnesium Level 2.1 Medications Medications Current Medications Aspirin (Aspirin) 81 mg DAILY PO Last administered on 05/21/17t 09:02; Admin Dose 81 MG; Start 05/19/17 at 09:00 Finasteride (Proscar) 5 mg DAILY PO Last administered on 05/21/17 09:03; Admin Dose 5 MG; Start 05/19/17 at 09:00 Gabapentin (Neurontin) 300 mg TID PO Last administered on 05/21/17 12:16; Admin Dose 300 MG; Start 05/18/17 at 21:00 Tamsulosin HCl (Flomax) 0.4 mg HS PO Last administered on 05/20/17 21:51; Admin Dose 0.4 MG; Start 05/18/17 at 21:00 Atorvastatin Calcium (Lipitor) 10 mg DAILY PO Last administered on 05/21/17 09:03; Admin Dose 10 MG; Start 05/19/17 at 09:00 Ondansetron HCl (Zofran Inj) 4 mg Q6H PRN IV NAUSEA AND/OR VOMITING; Start at 15:30 Acetaminophen (Tylenol Tab) 650 mg Q6H PRN PO PAIN LEVEL 1-3 OR FEVER; Start 05/18/17 at 15:30 Acetaminophen (Tylenol Supp) 650 mg Q6H PRN [place] PAIN LEVEL 1-3 OR FEVER; Start 05/18/17 at 15:30 Acetaminophen/ Hydrocodone Bitart ([place] (5/325)) 1 tab Q6H PRN PO MODERATE PAIN LEVEL 4-6 Last administered on 05/18/17 22:10; Admin Dose 1 TAB; Start 05/18/17 at 15:30 Acetaminophen/ Hydrocodone Bitart ([place] (5/325)) 2 tab Q6H PRN PO SEVERE PAIN LEVEL 7-10; Start 05/18/17 at 15:30 Morphine Sulfate (morphine) 2 mg Q4H PRN IV SEVERE PAIN LEVEL 7-10; Start at 15:30 Docusate Sodium (Colace) 100 mg Q12H PRN PO CONSTIPATION; Start 05/18/17 at 15 :30 Magnesium Hydroxide (Milk Of Mag) 30 ml DAILY PRN PO CONSTIPATION; Start 05/18 at 15:30 Bisacodyl (Dulcolax Supp) 10 mg DAILY PRN [place] CONSTIPATION; Start 05/18/17 at 15:30 Furosemide 40 mg 40 mg DAILY IV Last administered on 05/21/17 09:02; Admin Dose 40 MG; Start 05/19/17 at 09:00; Status Future Hold Ceftriaxone Sodium (Rocephin) 50 ml @ 100 mls/hr Q24H IVPB Last administered on 05/21/17 16:19; Admin Dose 100 MLS/HR; Start 05/18/17 at 16:30 Apixaban (Eliquis) 5 mg BID PO Last administered on 05/21/17 09:03; Admin Dose 5 MG; Start 05/19/17 at 21:00 Sertraline HCl (Zoloft) 50 mg HS PO Last administered on 05/20/17 21:51; Admin Dose 50 MG; Start 05/19/17 at 21:00 Miscellaneous Information (Pending Santyl Order For Wound Care) This patient simpson... PRN PRN XX WOUND CARE; Start 05/20/17 at 10:30 Collagenase (Santyl) 1 applic DAILY TOP Last administered on 05/21/17 09:04; Admin Dose 1 APPLIC; Start 05/20/17 at 11:00 Pantoprazole (Protonix Tab) 40 mg DAILY@06 PO Last administered on 05/21/17 05:41; Admin Dose 40 MG; Start 05/21/17 at 06:00 Metoprolol Tartrate (Lopressor) 25 mg BID NGT ; Start 05/21/17 at 21:00 NICOLE SANTANA May 21, 2017 16:57
[2017-05-21] MEDS: LEVALBUTEROL (NEB) 0.63 MG/3 ML AMP HHN PRN (18:25)
[2017-05-21] MEDS: TAMSULOSIN (SR) 0.4 MG CAP PO SCH (21:05)
[2017-05-21] MEDS: SERTRALINE 50 MG TAB PO SCH (21:05)
[2017-05-22] VITALS (11 sets, daily range): BP systolic 88–102; BP diastolic 56–61; PULSE 91–110; RESP 16–19
[2017-05-22] MEDS: PANTOPRAZOLE (EC) 40 MG TAB PO SCH (06:11)
[2017-05-22] MEDS: LEVOTHYROXINE 50 MCG TAB PO SCH (07:06)
[2017-05-22] MEDS: APIXABAN 5 MG TABLET PO SCH (08:42)
[2017-05-22] MEDS: ASPIRIN 81 MG TAB PO SCH (08:42)
[2017-05-22] MEDS: ATORVASTATIN 10 MG TAB PO SCH (08:43)
[2017-05-22] MEDS: FINASTERIDE 5 MG TAB PO SCH (08:43)
[2017-05-22] MEDS: GABAPENTIN 300 MG CAP PO SCH ×2 (08:44→12:45)
[2017-05-22] MEDS: METOPROLOL 25 MG TAB NGT SCH (08:45)
[2017-05-22] MEDS: COLLAGENASE 30 GM TUBE TOP SCH (08:49)
[2017-05-22] MEDS ORDERED: FUROSEMIDE 40 MG INJ IV SCH (09:00)
[2017-05-22 09:21] LABS: CALCIUM 8.3 mg/dl (8.4-10.2); CREATININE 0.55 mg/dl (0.61-1.24); POTASSIUM 3.9 mmol/L (3.5-5.1)
[2017-05-22] MEDS ORDERED: Pending Collagenase Order XX (10:24)
[2017-05-22] MEDS ORDERED: SAN30GM TOP (10:24)
[2017-05-22] MEDS ORDERED: Furosemide PO (10:24)
[2017-05-22] MEDS ORDERED: METO-448 NGT (10:24)
[2017-05-22] MEDS ORDERED: PANT40TA4 PO (10:24)
[2017-05-22] MEDS ORDERED: APIX5TAB PO (10:24)
[2017-05-22] MEDS: CEFTRIAXONE 1 GM/50 ML (PMX) 50 ML IVPB SCH (15:54)
--- NOTE | 2017-05-22 16:41 | PDOCDIS ---
Discharge Instructions DIAGNOSIS Discharge Diagnosis Atrial fibrillation with recent CVA. Coronary artery disease without acute coronary syndrome. CHF due to systolic heart failure, acute on chronic with and EF of 20% CONDITION Patient Condition: Good HOME CARE INSTRUCTIONS: Diet Instructions: Low Fat /CholesterolSpecial Diet: LOW CHOLESTEROL, LOW FAT DIET ACTIVITY: Activity Restrictions: Slowly Increase Activity Activity Restrictions Comment: No weight bearing. FOLLOW UP/APPOINTMENTS Follow-up Plan Primary care physician and cardiology in the next two weeks. ALVARADO NOLASCO M.D. May 22, 2017 16:41
--- NOTE | 2017-05-22 16:45 | DS ---
Date/Time of Note Date/Time of Note DATE: 05/22/17 TIME: 16:42 Discharge Summary Admission/Discharge Info Admit Date/Time May 18, 2017 at 13:06 Discharge Date/Time May 22, 2017 Patient Condition: Good Consults Juan Pablo Wright MD (cardiology) Procedures Echocardiography Hx of Present Illness Mr. 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 He was brought to [facility] due to shortness of breath for two days without chest pain. He denied any sick contacts, fever, or cough. Hospital Course His chest x-ray showed bilateral opacities suspicious for pneumonia, as well as cardiomegaly and vascular congestion with bilateral pulmonary edema. Blood tests showed a BNP of 7720 with slight elevation in lipase at 417. He was also noted to be anemic likely of chronic disease. He was in atrial fibrillation with rapid ventricular rate per EKG. He was treated with ceftriaxone IV q24h, and remained afebrile. Blood and urine cultures were all negative. Dr. Wright evaluated his atrial fibrillation, and yesterday recommended changing his beta stefany to 25 mg po TID. He will require long-term anticoagulation with Eliquis BID. Coronary artery disease noted, but with no acute coronary syndrome on this admission by troponins or EKG. His dyspnea was thought likely secondary to his systolic heart failure with an ejection fraction of 20%, and responded to diuresis. Notable laboratory studies included his normal HgbA1c of 5.9%, normal creatinine of 0.55, and very low iron of 11 mcg/dl and TIBC of 236 mcg/dl. Home Meds Active Scripts [Pending Collagenase Order] 1 EA EACH No Conflict Check, 0 EA XX twice daily Y for WOUND CARE for 30 Days, #1 BOTTLE Prov:DARRELL CHRIS MD 05/22/17 Collagenase* (Santyl*) 30 Gm Oint..gm., 1 APPLIC TOP twice daily for 28 Days, # 30 Prov:DARRELL CHRIS MD 05/22/17 Pantoprazole* (Pantoprazole*) 40 Mg Tablet., 40 MG PO DAILY@06 for 28 Days, # 30 0 Refills Prov:DARRELL CHRIS MD 05/22/17 [Furosemide] 10 MG/ML SOLN No Conflict Check, 40 MG PO DAILY for 28 Days, #30 Prov:DARRELL CHRIS MD 05/22/17 Metoprolol Tartrate* (Lopressor*) 25 Mg Tab, 25 MG NGT BID for 30 Days, TAB Hold for SBP less 100 Prov:DARRELL CHRIS MD 05/22/17 Apixaban* (Eliquis*) 5 Mg Tablet, 5 MG PO BID for 30 Days, TAB Prov:DARRELL CHRIS MD 05/22/17 Reported Medications Finasteride* (Finasteride*) 5 Mg Tablet, 5 MG PO DAILY, TAB 05/18/17 Aspirin* (Aspirin* Chew) 81 Mg Tab.chew, 81 MG PO DAILY, TAB.CHEW 12/25/16 Tamsulosin Hcl* (Tamsulosin Hcl*) 0.4 Mg Cap.er.24h, 0.4 MG PO HS, CAP 12/25/16 Pantoprazole* (Pantoprazole*) 40 Mg Tablet.dr, 40 MG ORAL DAILY, #30 12/25/16 Gabapentin* (Gabapentin*) 300 Mg Capsule, 300 MG ORAL TID, #90 12/25/16 Lovastatin (Lovastatin) 40 Mg Tablet, 40 MG ORAL DAILY, #60 12/25/16 Levothyroxine Sodium* (Levothyroxine Sodium*) 50 Mcg Tablet, 50 MCG ORAL AM, #30 12/25/16 Follow-up Plan He is being discharged to the [facility] for further rehabilitation. Follow-up will be with Cardiology ([facility]) and primary care (Dr. Madrigal) in the next two weeks. Primary Care Provider Marilia Madrigal DO Time spent on discharge: > 30 minutes Pending Labs Laboratory Tests Test 05/22/17 07:53 Sodium Level 140mmol/L (135-144) Potassium Level 3.9mmol/L (3.5-5.1) Chloride Level 98mmol/L (97-110) Carbon Dioxide Level 34mmol/L (21-31) Anion Gap 12 (8-16) Blood Urea Nitrogen 19mg/dl (7-20) Creatinine 0.55mg/dl (0.61-1.24) Glucose Level 92mg/dl (70-220) Calcium Level 8.3mg/dl (8.4-10.2) ALVARADO NOLASCO M.D. May 22, 2017 16:45
--- NOTE | 2017-05-22 18:13 | CONS ---
Date/Time of Note Date/Time of Note DATE: 05/22/17 TIME: 18:09 Assessment/Plan Assessment/Plan Chief Complaint/Hosp Course IMP: 1.AF-rate controlled 2.CHF-systolic acute on chronic 3. Cardiomyopathy-LVEF 20% 4.HTN 5.sob Recc: -Tele -Continue BB -Continue asa/statin -Continue lasix -Continue eliquis -start low dose ACEI afterload reduction -d/c planning if stable Problems: Consultation Date/Type/Reason Admit Date/Time May 18, 2017 at 13:06 Initial Consult Date 05/19/17 Type of Consultation: cardiology Reason for Consultation AF Referring Provider: ALVARADO NOLASCO M.D. Exam/Review of Systems Vital Signs Vitals Vital Signs Date Time Temp Pulse Resp B/P Pulse Ox O2 Delivery O2 Flow Rate FiO2 05/22/17 17:47 3.0 05/22/17 16:33 91 05/22/17 16:09 98.4 16 101/57 97 05/22/17 11:54 Nasal Cannula Intake and Output 05/21/17 05/21/17 05/22/17 15:00 23:00 07:00 Intake Total 850 ml 300 ml Output Total 1300 ml 600 ml Balance -450 ml -300 ml Exam Review of Systems: CONSTITUTIONAL: No fevers, chills. PULMONARY: No sob CARDIOVASCULAR: No chest pain/palpitations GASTROINTESTINAL: No nausea/vomiting. GENITOURINARY: No hematuria/dysuria. MUSCULOSKELETAL: No myagias/arthalgias. PSYCHIATRIC: The patient denies depression. NEUROLOGIC: No weakness Constitutional: alert Psych: no complaints Head: normocephalic ENMT: mucosa pink and moist Neck: jvd (8 cm water), supple Respiratory: clear to auscultation Cardiovascular: irregular rhythm Gastrointestinal: non-tender, soft Musculoskeletal: muscle weakness (mild generalized) Extremities: edema (none) Neurological: other (No focal deficits) Results Result Diagram: 05/20/17 0642 05/22/17 0753 Results 24 hrs Laboratory Tests Test 05/22/17 07:53 Sodium Level 140 Potassium Level 3.9 Chloride Level 98 Carbon Dioxide Level 34 H Anion Gap 12 Blood Urea Nitrogen 19 Creatinine 0.55 L Glucose Level 92 Calcium Level 8.3 L Medications Medications Current Medications Aspirin (Aspirin) 81 mg DAILY PO Last administered on 05/22/17t 08:42; Admin Dose 81 MG; Start 05/19/17 at 09:00 Finasteride (Proscar) 5 mg DAILY PO Last administered on 05/22/17 08:43; Admin Dose 5 MG; Start 05/19/17 at 09:00 Gabapentin (Neurontin) 300 mg TID PO Last administered on 05/22/17 12:45; Admin Dose 300 MG; Start 05/18/17 at 21:00 Tamsulosin HCl (Flomax) 0.4 mg HS PO Last administered on 05/21/17 21:05; Admin Dose 0.4 MG; Start 05/18/17 at 21:00 Atorvastatin Calcium (Lipitor) 10 mg DAILY PO Last administered on 05/22/17 08:43; Admin Dose 10 MG; Start 05/19/17 at 09:00 Ondansetron HCl (Zofran Inj) 4 mg Q6H PRN IV NAUSEA AND/OR VOMITING; Start at 15:30 Acetaminophen (Tylenol Tab) 650 mg Q6H PRN PO PAIN LEVEL 1-3 OR FEVER; Start 05/18/17 at 15:30 Acetaminophen (Tylenol Supp) 650 mg Q6H PRN [place] PAIN LEVEL 1-3 OR FEVER; Start 05/18/17 at 15:30 Acetaminophen/ Hydrocodone Bitart ([place] (5/325)) 1 tab Q6H PRN PO MODERATE PAIN LEVEL 4-6 Last administered on 05/18/17 22:10; Admin Dose 1 TAB; Start 05/18/17 at 15:30 Acetaminophen/ Hydrocodone Bitart ([place] (5/325)) 2 tab Q6H PRN PO SEVERE PAIN LEVEL 7-10; Start 05/18/17 at 15:30 Morphine Sulfate (morphine) 2 mg Q4H PRN IV SEVERE PAIN LEVEL 7-10; Start at 15:30 Docusate Sodium (Colace) 100 mg Q12H PRN PO CONSTIPATION; Start 05/18/17 at 15 :30 Magnesium Hydroxide (Milk Of Mag) 30 ml DAILY PRN PO CONSTIPATION; Start 05/18 at 15:30 Bisacodyl (Dulcolax Supp) 10 mg DAILY PRN [place] CONSTIPATION; Start 05/18/17 at 15:30 Furosemide 40 mg 40 mg DAILY IV Last administered on 05/21/17 09:02; Admin Dose 40 MG; Start 05/19/17 at 09:00; Status Future Hold Ceftriaxone Sodium (Rocephin) 50 ml @ 100 mls/hr Q24H IVPB Last administered on 05/22/17 15:54; Admin Dose 100 MLS/HR; Start 05/18/17 at 16:30 Apixaban (Eliquis) 5 mg BID PO Last administered on 05/22/17 08:42; Admin Dose 5 MG; Start 05/19/17 at 21:00 Sertraline HCl (Zoloft) 50 mg HS PO Last administered on 05/21/17 21:05; Admin Dose 50 MG; Start 05/19/17 at 21:00 Miscellaneous Information (Pending Santyl Order For Wound Care) This patient simpson... PRN PRN XX WOUND CARE; Start 05/20/17 at 10:30 Collagenase (Santyl) 1 applic DAILY TOP Last administered on 05/22/17 08:49; Admin Dose 1 APPLIC; Start 05/20/17 at 11:00 Pantoprazole (Protonix Tab) 40 mg DAILY@06 PO Last administered on 05/22/17 06:11; Admin Dose 40 MG; Start 05/21/17 at 06:00 Metoprolol Tartrate (Lopressor) 25 mg BID NGT ; Start 05/21/17 at 21:00 Furosemide (Lasix) 40 mg DAILY PO ; Start 05/23/17 at 09:00 SHINE WISEMAN 27, 2017 18:13
[2017-05-23] MEDS ORDERED: FUROSEMIDE 40 MG TAB PO SCH (09:00)
[2017-05-23] MEDS ORDERED: LISINOPRIL 5 MG TAB PO SCH (09:00)
== END 2017-05-22 18:50 | DRG 291 ==
LOC: E/R 11:54 → TEL 13:06
PROVIDERS: ADMIT Internal Medicine; ATTEND Internal Medicine
DX: I11.0 Hypertensive heart disease with heart failure (principal); J96.00 Acute respiratory failure, unspecified whether with hypoxia or hypercapnia; J18.9 Pneumonia, unspecified organism; E86.0 Dehydration; I48.0 Paroxysmal atrial fibrillation; D63.8 Anemia in other chronic diseases classified elsewhere; I42.9 Cardiomyopathy, unspecified; Z79.01 Long term (current) use of anticoagulants; J44.1 Chronic obstructive pulmonary disease with (acute) exacerbation; I50.23 Acute on chronic systolic (congestive) heart failure; E03.9 Hypothyroidism, unspecified; I25.10 Atherosclerotic heart disease of native coronary artery without angina pectoris; E78.5 Hyperlipidemia, unspecified; K29.50 Unspecified chronic gastritis without bleeding; F17.210 Nicotine dependence, cigarettes, uncomplicated; N40.0 Benign prostatic hyperplasia without lower urinary tract symptoms; Z79.82 Long term (current) use of aspirin; Z74.01 Bed confinement status; Z86.73 Personal history of transient ischemic attack (TIA), and cerebral infarction without residual deficits
CPT/HCPCS: 36415; 71010; 80048; 80053; 80061; 81001; 82550; 82553; 83036; 83540; 83690; 83735; 83880; 84100; 84436; 84443; 84479; 84484; 85025; 87040; 87086; 90686; 92526; 92610; 93005; 93306; 94640; 94644; 94664; 96374; 96375; C9113; J0456; J0696; J1644; J1650; J1940; J2930; J3475; J7030